=== PATIENT | male | born 1950 | race Hispanic/Latino ===

== ENCOUNTER 2021-05-31 12:30 | Inpatient (IN) | payer MEDICARE ==
[2021-05-31 13:36] LABS: #Eosinphils 0.1 thou/uL (0.0-0.7); #Lymphocytes 1.5 thou/uL (1.20-3.40); #Monocytes 0.7 thou/uL (0.11-0.59); #Neutrophils 3.9 thou/uL (1.40-6.50); %Basophils 0.3 % (0.0-1.0); %Eosinophils 0.8 % (0.0-10.0); %Lymphocytes 24.6 % (21.0-51.0); %Monocytes 10.6 % (0.0-10.0); %Neutrophils 63.6 % (42.0-75.0); Hemoglobin 9.2 g/dL (14.0-18.0); Mean Corpuscular HGB CONC 33.6 g/dL (32.0-36.0); Mean Corpuscular Hemoglobin 34.4 pg (27.0-31.0); Mean Platelet Volume 7.1 fL (7.4-10.4); Platelet Count 126 thou/uL (130-400); Red Blood Cell (RBC) Count 2.66 mill/uL (4.70-6.10); White Blood Cell (WBC) Count 6.1 thou/uL (4.8-10.8)
[2021-05-31 13:46] LABS: Bacteria/HPF None Seen HPF (None Seen); Bilirubin Negative (Negative); Blood, Urine 2+ (Negative); Clarity Turbid (Clear); Glucose, Urine (Dipstick) Normal (Negative); Ketone, Urine Negative (Negative); Leukocyte Negative Leu/uL (Negative); Nitrite Negative (Negative); Protein, Urine (Dipstick) 70 mg/dL (Neg-Trace); RBC/HPF 0-3 HPF (0-3); Specific Gravity, Urine 1.016 (1.002-1.036); Squamous Epithelial 0-3 HPF (0-3); Urobilinogen Normal mg/dL (Less than 2); pH, Urine 5.5 (5.0-9.0)
[2021-05-31 13:48] LABS: ALT (SGPT) 8 U/L (8-55); AST (SGOT) 27 U/L (5-34); Albumin 2.3 g/dL (3.4-4.8); Alkaline Phosphatase 65 U/L (40-110); Anion Gap 17 mmol/L (10-20); BUN (Urea Nitrogen) 34 mg/dL (8.4-25.7); Bilirubin, Total 0.2 mg/dL (0.2-1.2); Calc. Creatinine Clearance 0 mL/min (70-130); Carbon Dioxide 26 mmol/L (23-31); Chloride 96 mmol/L (98-107); Glucose 104 mg/dL (80-115); Potassium 3.8 mmol/L (3.5-5.1); Sodium 135 mmol/L (136-145)
[2021-05-31 14:37] LABS: Calcium 15.1 mg/dL (7.8-10.44)
[2021-05-31 14:40] LABS: Globulin 9.6 g/dL (2.4-3.5); Protein, Total 11.9 g/dL (5.8-8.1)
[2021-05-31] MEDS ORDERED: Senokot S 8.6-50 MG TAB PO PRN (16:23)
[2021-05-31] MEDS ORDERED: Acetaminophen 325 MG TAB PO PRN (16:23)
[2021-05-31] MEDS ORDERED: Guaifenesin DM 100-10/5 ML UDCUP PO PRN (16:23)
[2021-05-31] MEDS ORDERED: Ondansetron PF 4 MG/2 ML Vial IVP PRN (16:23)
[2021-05-31] MEDS ORDERED: Bisacodyl 10 MG SUPP PR PRN (16:23)
[2021-05-31] MEDS ORDERED: HYDROcodone/Acetaminophen 5/325 mg Tablet PO PRN (16:23)
[2021-05-31] MEDS ORDERED: Zolpidem Tartrate 5 MG TAB PO PRN (16:23)
[2021-05-31] MEDS ORDERED: Ondansetron ODT 4 MG TAB PO PRN (16:23)
[2021-05-31] MEDS ORDERED: Loperamide HCl 2 MG CAP PO PRN (16:23)
[2021-05-31] MEDS ORDERED: hydrALAZINE 20 MG/ML VIAL SLOW IVP PRN (16:24)
[2021-05-31] MEDS ORDERED: Zoledronic Acid 4 MG in Sodium Chloride 0.9% 100 ML IVPB SCH (16:30)
[2021-05-31 16:57] LABS: INR-International Normal Ratio 1.3; Prothrombin Time 16.1 sec (12.0-14.7)
[2021-05-31 16:58] LABS: PTT 40.4 sec (22.9-36.1)
[2021-05-31 17:02] LABS: Magnesium 2.1 mg/dL (1.6-2.6); Phosphorus 5.2 mg/dL (2.3-4.7)
[2021-05-31] MEDS ORDERED: Amlodipine 10 MG TAB PO SCH (17:30)
[2021-05-31 18:41] VITALS: BMI 32.7
[2021-05-31] MEDS ORDERED: Zoledronic Acid 4 MG in Sodium Chloride 0.9% 100 ML IVPB ONE (19:23)
[2021-05-31] MEDS: Sodium Chloride 0.9% 1,000 ML IV SCH (20:36)
[2021-05-31 20:52] LABS: Creatinine, Urine 168.18 mg/dL (63-166)
[2021-05-31] MEDS ORDERED: Heparin 5,000 UNITS/ML VIAL SC SCH (21:00)
[2021-06-01 05:21] LABS: #Eosinphils 0.1 thou/uL (0.0-0.7); #Lymphocytes 0.9 thou/uL (1.20-3.40); #Monocytes 0.4 thou/uL (0.11-0.59); #Neutrophils 2.8 thou/uL (1.40-6.50); %Basophils 0.2 % (0.0-1.0); %Eosinophils 1.5 % (0.0-10.0); %Lymphocytes 21.9 % (21.0-51.0); %Monocytes 10.1 % (0.0-10.0); %Neutrophils 66.4 % (42.0-75.0); Hemoglobin 8.3 g/dL (14.0-18.0); Mean Corpuscular HGB CONC 33.4 g/dL (32.0-36.0); Mean Corpuscular Hemoglobin 34.1 pg (27.0-31.0); Platelet Count 118 thou/uL (130-400); RBC Distribution Width 12.7 % (11.5-14.5); Red Blood Cell (RBC) Count 2.43 mill/uL (4.70-6.10); White Blood Cell (WBC) Count 4.3 thou/uL (4.8-10.8)
[2021-06-01] MEDS: Sodium Chloride 0.9% 1,000 ML IV SCH ×3 (05:21→16:40)
[2021-06-01 05:39] LABS: ALT (SGPT) Less than 7 U/L (8-55); AST (SGOT) 24 U/L (5-34); Albumin 2.1 g/dL (3.4-4.8); Alkaline Phosphatase 60 U/L (40-110); Anion Gap 16 mmol/L (10-20); BUN (Urea Nitrogen) 37 mg/dL (8.4-25.7); Bilirubin, Total 0.3 mg/dL (0.2-1.2); Calc. Creatinine Clearance 19 mL/min (70-130); Carbon Dioxide 26 mmol/L (23-31); Chloride 101 mmol/L (98-107); Globulin 8.9 g/dL (2.4-3.5); Glucose 100 mg/dL (80-115); Potassium 3.8 mmol/L (3.5-5.1); Sodium 139 mmol/L (136-145)
[2021-06-01 05:44] LABS: Calcium 13.3 mg/dL (7.8-10.44)
[2021-06-01 06:46] LABS: Complement-C4 27.6 mg/dL (15-53)
[2021-06-01] MEDS ORDERED: Amlodipine 10 MG TAB PO SCH (09:00)
[2021-06-01] MEDS ORDERED: Sodium Bicarbonate 2.5 MEQ/5 ML VIAL ONE (09:53)
[2021-06-01] MEDS ORDERED: Midazolam HCl 2 mg/2 ml Vial ONE (09:54)
[2021-06-01] MEDS ORDERED: Fentanyl 100 MCG/2 ML VIAL ONE (09:54)
[2021-06-01] MEDS: Folic Acid 1 MG TAB PO SCH (10:35)
[2021-06-01] MEDS: Cyanocobalamin (Vitamin B-12) 1,000 MCG TAB PO SCH (10:35)
[2021-06-01 11:07] LABS: SARS-CoV-2 PCR by NAA Not Detected (NotDetected)
[2021-06-01 14:42] LABS: Immunoglob - A (Total IgA) Greater than 6300.00 mg/dL (101-645)
[2021-06-02] MEDS: Sodium Chloride 0.9% 1,000 ML IV SCH ×3 (00:06→17:32)
[2021-06-02 05:17] LABS: #Eosinphils 0.1 thou/uL (0.0-0.7); #Lymphocytes 0.7 thou/uL (1.20-3.40); #Monocytes 0.4 thou/uL (0.11-0.59); #Neutrophils 3.1 thou/uL (1.40-6.50); %Basophils 0.1 % (0.0-1.0); %Eosinophils 1.8 % (0.0-10.0); %Lymphocytes 16.4 % (21.0-51.0); %Neutrophils 71.8 % (42.0-75.0); Hemoglobin 7.7 g/dL (14.0-18.0); Mean Corpuscular HGB CONC 32.8 g/dL (32.0-36.0); Mean Platelet Volume 7.3 fL (7.4-10.4); Platelet Count 112 thou/uL (130-400); RBC Distribution Width 12.9 % (11.5-14.5); Red Blood Cell (RBC) Count 2.26 mill/uL (4.70-6.10); White Blood Cell (WBC) Count 4.3 thou/uL (4.8-10.8)
[2021-06-02 06:13] LABS: Anion Gap 13 mmol/L (10-20); BUN (Urea Nitrogen) 43 mg/dL (8.4-25.7); BUN/Creatinine Ratio 8.88; Calc. Creatinine Clearance 18 mL/min (70-130); Calcium 11.1 mg/dL (7.8-10.44); Carbon Dioxide 25 mmol/L (23-31); Chloride 102 mmol/L (98-107); Glucose 95 mg/dL (80-115); Phosphorus 3.3 mg/dL (2.3-4.7); Potassium 3.5 mmol/L (3.5-5.1); Sodium 136 mmol/L (136-145)
[2021-06-02] MEDS ORDERED: NIFEdipine XL 60 MG TAB PO SCH (06:15)
[2021-06-02] MEDS ORDERED: Midazolam HCl 2 mg/2 ml Vial ONE (09:22)
[2021-06-02] MEDS ORDERED: Fentanyl 100 MCG/2 ML VIAL ONE (09:23)
[2021-06-02] MEDS ORDERED: Sodium Bicarbonate 2.5 MEQ/5 ML VIAL ONE (09:23)
[2021-06-02] MEDS: Folic Acid 1 MG TAB PO SCH (11:10)
[2021-06-02] MEDS: Cyanocobalamin (Vitamin B-12) 1,000 MCG TAB PO SCH (11:10)
[2021-06-02 11:39] LABS: Iron 47 ug/dL (65-175); Iron Binding Capacity, Total 123 mcg/dL (261-462)
[2021-06-02] MEDS ORDERED: Dexamethasone 4 MG TAB PO SCH (15:00)
[2021-06-02 16:03] LABS: 24 Hr Creatinine 1531.44 mg/24 hr (950-2490); Creatinine, Urine 85.08 mg/dL (63-166)
[2021-06-02] MEDS: Docusate 100 MG CAP PO SCH (21:01)
[2021-06-03] MEDS: Sodium Chloride 0.9% 1,000 ML IV SCH (02:07)
[2021-06-03 05:12] LABS: Kappa Lambda Light Chain Ratio 0.01 (0.26-1.65); Kappa Light Chains 8.6 mg/L (3.3-19.4); Lambda Light Chain 1193.9 mg/L (5.7-26.3)
[2021-06-03 05:27] LABS: Anion Gap 17 mmol/L (10-20); BUN (Urea Nitrogen) 50 mg/dL (8.4-25.7); Calc. Creatinine Clearance 19 mL/min (70-130); Calcium 9.7 mg/dL (7.8-10.44); Carbon Dioxide 19 mmol/L (23-31); Chloride 101 mmol/L (98-107); Glucose 151 mg/dL (80-115); Sodium 133 mmol/L (136-145)
[2021-06-03 05:52] LABS: Thyroid Stimulating Hormone 0.5707 uIU/mL (0.35-4.94)
[2021-06-03] MEDS ORDERED: Cyanocobalamin 1000 MCG/ML VIAL IM SCH (07:00)
[2021-06-03] MEDS: Folic Acid 1 MG TAB PO SCH (08:17)
[2021-06-03] MEDS: Cyanocobalamin (Vitamin B-12) 1,000 MCG TAB PO SCH (08:17)
[2021-06-03] MEDS: Dexamethasone 4 MG TAB PO SCH (08:17)
[2021-06-03] MEDS: Ascorbic Acid 500 mg Chewable Tablet PO SCH (08:17)
[2021-06-03] MEDS: Docusate 100 MG CAP PO SCH ×2 (08:17→21:38)
[2021-06-03] MEDS: Ferrous Gluconate 324 MG TAB PO SCH (08:18)
[2021-06-03] MEDS: NIFEdipine XL 60 MG TAB PO SCH (08:24)
[2021-06-03] MEDS ORDERED: Sodium Bicarbonate 50 MEQ in Sodium Chloride 0.45% 1,000 ML IV SCH (09:45)
[2021-06-03] MEDS ORDERED: Febuxostat 40 MG TAB PO SCH (10:45)
[2021-06-03] MEDS: Sodium Bicarbonate 75 MEQ in Sodium Chloride 0.45% 1,000 ML IV SCH ×2 (11:20→23:07)
[2021-06-03 14:16] LABS: Albumin-Ur 13.8 % (.); Alpha 1 - Ur 3.4 % (.); Alpha 2 - Ur 11.7 % (.); Beta-Ur 63.6 % (.); Gamma-Ur 7.4 % (.); M-Spike,% 43.8 % (Not Observed); Protein, Urine 98.2 mg/dL (Not Estab.)
[2021-06-03 14:16] LABS: A/G Ratio 0.3 (0.7-1.7); Albumin 2.8 g/dL (2.9-4.4); Alpha 1 0.3 g/dL (0.0-0.4); Alpha 2 0.6 g/dL (0.4-1.0); Beta 5.5 g/dL (0.7-1.3); Gamma 2.4 g/dL (0.4-1.8); Globulin, Total 8.8 g/dL (2.2-3.9); M-Spike 4.5 g/dL (Not Observed); Protein Electrophoresis Intrp Note: (.)
[2021-06-04 04:37] LABS: #Lymphocytes 0.3 thou/uL (1.20-3.40); #Monocytes 0.4 thou/uL (0.11-0.59); #Neutrophils 5.8 thou/uL (1.40-6.50); %Basophils 0.6 % (0.0-1.0); %Lymphocytes 4.5 % (21.0-51.0); %Monocytes 5.4 % (0.0-10.0); %Neutrophils 89.5 % (42.0-75.0); Hemoglobin 7.2 g/dL (14.0-18.0); Mean Corpuscular HGB CONC 33.8 g/dL (32.0-36.0); Mean Corpuscular Hemoglobin 34.5 pg (27.0-31.0); Mean Platelet Volume 7.3 fL (7.4-10.4); Platelet Count 94 thou/uL (130-400); RBC Distribution Width 12.7 % (11.5-14.5); Red Blood Cell (RBC) Count 2.09 mill/uL (4.70-6.10); White Blood Cell (WBC) Count 6.5 thou/uL (4.8-10.8)
[2021-06-04 05:02] LABS: ALT (SGPT) Less than 7 U/L (8-55); AST (SGOT) 84 U/L (5-34); Albumin 1.8 g/dL (3.4-4.8); Alkaline Phosphatase 55 U/L (40-110); Anion Gap 16 mmol/L (10-20); BUN (Urea Nitrogen) 66 mg/dL (8.4-25.7); Bilirubin, Total Less than 0.2 mg/dL (0.2-1.2); Calc. Creatinine Clearance 21 mL/min (70-130); Calcium 8.3 mg/dL (7.8-10.44); Carbon Dioxide 21 mmol/L (23-31); Chloride 101 mmol/L (98-107); Globulin 7.9 g/dL (2.4-3.5); Glucose 133 mg/dL (80-115); Potassium 3.3 mmol/L (3.5-5.1); Protein, Total 9.7 g/dL (5.8-8.1); Sodium 135 mmol/L (136-145); Uric Acid 11.9 mg/dL (3.5-7.2)
[2021-06-04] MEDS: Sodium Bicarbonate 75 MEQ in Sodium Chloride 0.45% 1,000 ML IV SCH (08:09)
[2021-06-04] MEDS ORDERED: Potassium Chloride 20 MEQ TAB PO SCH (09:00)
[2021-06-04] MEDS: Docusate 100 MG CAP PO SCH ×2 (09:00→20:50)
[2021-06-04] MEDS: NIFEdipine XL 60 MG TAB PO SCH (09:00)
[2021-06-04] MEDS: Folic Acid 1 MG TAB PO SCH (09:01)
[2021-06-04] MEDS: Dexamethasone 4 MG TAB PO SCH (09:01)
[2021-06-04] MEDS: Cyanocobalamin (Vitamin B-12) 1,000 MCG TAB PO SCH (09:01)
[2021-06-04] MEDS: Ferrous Gluconate 324 MG TAB PO SCH (09:01)
[2021-06-04] MEDS ORDERED: BORTEZOMIB SC SCH (09:45)
[2021-06-04] MEDS ORDERED: ADMIXTURE FEE CHEMO SC SCH (09:45)
[2021-06-04] MEDS ORDERED: Cyclophosphamide 0.6 GM in Sodium Chloride 0.9% 250 ML 250 ML IVPB SCH (09:45)
[2021-06-04] MEDS: Febuxostat 40 MG TAB PO SCH (11:12)
[2021-06-04] MEDS: Ascorbic Acid 500 mg Chewable Tablet PO SCH (13:11)
[2021-06-04] MEDS: Lactated Ringer's 1,000 ML IV SCH ×2 (13:11→21:49)
[2021-06-04 16:36] LABS: Albumin, PEP 24hr Ur 11.9 % (NOT ESTAB.); Alpha-1-Globulin, PEP 24h Ur 2.1 % (NOT ESTAB.); Alpha-2-Globulin, PEP 24h Ur 4.1 % (NOT ESTAB.); Beta Globulin, PEP 24h Ur 18.1 % (NOT ESTAB.); Gamma Globulin, PEP 24h Ur 63.7 % (NOT ESTAB.); M-Spike, mg/24hr PEP Ur 1253.6 mg/24 hr (Not Observed); M-Spike,% PEP 24hr Ur 56.9 % (Not Observed); Protein, Urine 122.4 mg/dL (Not Estab.)
[2021-06-05 05:03] LABS: #Lymphocytes 0.3 thou/uL (1.20-3.40); #Monocytes 0.3 thou/uL (0.11-0.59); #Neutrophils 4.3 thou/uL (1.40-6.50); %Eosinophils 0.3 % (0.0-10.0); %Lymphocytes 5.9 % (21.0-51.0); %Monocytes 6.4 % (0.0-10.0); %Neutrophils 87.4 % (42.0-75.0); Mean Corpuscular HGB CONC 32.9 g/dL (32.0-36.0); Mean Corpuscular Hemoglobin 33.9 pg (27.0-31.0); Platelet Count 101 thou/uL (130-400); RBC Distribution Width 12.9 % (11.5-14.5); Red Blood Cell (RBC) Count 2.36 mill/uL (4.70-6.10)
[2021-06-05 05:21] LABS: ALT (SGPT) 8 U/L (8-55); AST (SGOT) 62 U/L (5-34); Albumin 1.9 g/dL (3.4-4.8); Alkaline Phosphatase 57 U/L (40-110); Anion Gap 17 mmol/L (10-20); BUN (Urea Nitrogen) 68 mg/dL (8.4-25.7); Bilirubin, Total Less than 0.2 mg/dL (0.2-1.2); Calc. Creatinine Clearance 28 mL/min (70-130); Calcium 7.8 mg/dL (7.8-10.44); Carbon Dioxide 21 mmol/L (23-31); Chloride 103 mmol/L (98-107); Glucose 123 mg/dL (80-115); Potassium 3.6 mmol/L (3.5-5.1); Protein, Total 9.9 g/dL (5.8-8.1); Sodium 137 mmol/L (136-145)
[2021-06-05] MEDS: Lactated Ringer's 1,000 ML IV SCH ×2 (05:51→12:48)
[2021-06-05] MEDS: Dexamethasone 4 MG TAB PO SCH (08:17)
[2021-06-05] MEDS: Sodium Bicarbonate Tab 325 MG TAB PO SCH ×2 (08:18→20:03)
[2021-06-05] MEDS: Cyanocobalamin (Vitamin B-12) 1,000 MCG TAB PO SCH (08:18)
[2021-06-05] MEDS: valACYclovir 500 MG TAB PO SCH (08:18)
[2021-06-05] MEDS: Ascorbic Acid 500 mg Chewable Tablet PO SCH (08:18)
[2021-06-05] MEDS: Docusate 100 MG CAP PO SCH ×2 (08:18→20:03)
[2021-06-05] MEDS: Febuxostat 40 MG TAB PO SCH (08:18)
[2021-06-05] MEDS: Folic Acid 1 MG TAB PO SCH (08:19)
[2021-06-05] MEDS: NIFEdipine XL 60 MG TAB PO SCH (08:19)
[2021-06-05] MEDS: Ferrous Gluconate 324 MG TAB PO SCH (08:19)
[2021-06-06 07:04] LABS: #Lymphocytes 0.3 thou/uL (1.20-3.40); #Monocytes 0.5 thou/uL (0.11-0.59); #Neutrophils 3.1 thou/uL (1.40-6.50); %Eosinophils 0.2 % (0.0-10.0); %Lymphocytes 8.5 % (21.0-51.0); %Monocytes 12.7 % (0.0-10.0); %Neutrophils 78.6 % (42.0-75.0); Hemoglobin 7.1 g/dL (14.0-18.0); Mean Corpuscular HGB CONC 32.6 g/dL (32.0-36.0); Mean Platelet Volume 7.7 fL (7.4-10.4); Platelet Count 91 thou/uL (130-400); Red Blood Cell (RBC) Count 2.08 mill/uL (4.70-6.10); White Blood Cell (WBC) Count 3.9 thou/uL (4.8-10.8)
[2021-06-06 07:05] LABS: Anion Gap 15 mmol/L (10-20); BUN (Urea Nitrogen) 63 mg/dL (8.4-25.7); Calc. Creatinine Clearance 35 mL/min (70-130); Carbon Dioxide 24 mmol/L (23-31); Chloride 103 mmol/L (98-107); Glucose 111 mg/dL (80-115); Potassium 3.5 mmol/L (3.5-5.1); Sodium 138 mmol/L (136-145)
[2021-06-06 08:09] VITALS: BP 164/84; TEMP 98.4
[2021-06-06 08:17] LABS: Phosphorus 3.2 mg/dL (2.3-4.7); Uric Acid 6.8 mg/dL (3.5-7.2)
[2021-06-06] MEDS ORDERED: Calcium Carbonate 500 MG ChewTAB PO SCH (09:00)
[2021-06-06] MEDS: Ferrous Gluconate 324 MG TAB PO SCH (10:18)
[2021-06-06] MEDS: Ascorbic Acid 500 mg Chewable Tablet PO SCH (10:19)
[2021-06-06] MEDS: Docusate 100 MG CAP PO SCH (10:20)
[2021-06-06] MEDS: Cyanocobalamin (Vitamin B-12) 1,000 MCG TAB PO SCH (10:20)
[2021-06-06] MEDS: NIFEdipine XL 60 MG TAB PO SCH (10:20)
[2021-06-06] MEDS: Folic Acid 1 MG TAB PO SCH (10:20)
[2021-06-06] MEDS: Sodium Bicarbonate Tab 325 MG TAB PO SCH (10:21)
[2021-06-06] MEDS: valACYclovir 500 MG TAB PO SCH (10:21)
[2021-06-06] MEDS: Febuxostat 40 MG TAB PO SCH (10:26)
== END 2021-06-06 15:44 | disposition home or self-care (01) | DRG 841 ==
LOC: EDBD 12:30 → ERS 12:30 → ERHOLD 16:00 → 2SW 18:35 → MSONC 06-03 20:20
PROVIDERS: ADMIT Internal Medicine; ATTEND Internal Medicine
PROC: 0TB13ZX Excision of Left Kidney, Percutaneous Approach, Diagnostic (ICD-10-PCS; principal; 2021-05-31)
PROC: 07DR3ZX Extraction of Iliac Bone Marrow, Percutaneous Approach, Diagnostic (ICD-10-PCS; 2021-06-02)
DX: C90.00 Multiple myeloma not having achieved remission (principal); N17.9 Acute kidney failure, unspecified; E87.2 Acidosis; D61.818 Other pancytopenia; M62.82 Rhabdomyolysis; Z20.822 Contact with and (suspected) exposure to COVID-19; D53.9 Nutritional anemia, unspecified; N13.9 Obstructive and reflux uropathy, unspecified; D50.9 Iron deficiency anemia, unspecified; E79.0 Hyperuricemia without signs of inflammatory arthritis and tophaceous disease; D89.2 Hypergammaglobulinemia, unspecified; E53.8 Deficiency of other specified B group vitamins; I12.9 Hypertensive chronic kidney disease with stage 1 through stage 4 chronic kidney disease, or unspecified chronic kidney disease; N18.9 Chronic kidney disease, unspecified; E87.6 Hypokalemia; Z87.891 Personal history of nicotine dependence
CPT/HCPCS: 20225; 36415; 38222; 50200; 71045; 74176; 77012; 80048; 80053; 80069; 81003; 81015; 82232; 82306; 82550; 82570; 82607; 82728; 82746; 83540; 83550; 83615; 83735; 83883; 83970; 84100; 84156; 84165; 84166; 84300; 84443; 84550; 85025; 85610; 85730; 86160; 87086; 88184; 88237; 88264; 88280; 88329; 93005; J0360; J1644; J2250; J3010; J3420; J3489; J3490; J7050; J7120; J8540; U0003; U0005

== ENCOUNTER 2021-06-11 10:43 | Day surgery (SDC) | payer MEDICARE ==
[~2021-06-11 10:43] MED LIST: ADMIXTURE FEE CHEMO SC SCH; BORTEZOMIB SC SCH; Cyclophosphamide 0.6 GM in Sodium Chloride 0.9% 250 ML 250 ML IVPB SCH; Dexamethasone 4 MG TAB PO SCH
[2021-06-11] MEDS ORDERED: Sodium Chloride 0.9% 10 ML ONE ×2 (11:51)
[2021-06-11 14:03] VITALS: BP 160/95
== END 2021-06-11 14:19 | disposition home or self-care (01) ==
LOC: ONC/OP 10:43
PROVIDERS: ATTEND Internal Medicine Hematology & Oncology
DX: Z51.11 Encounter for antineoplastic chemotherapy (principal); C90.00 Multiple myeloma not having achieved remission; C79.51 Secondary malignant neoplasm of bone
CPT/HCPCS: 96401; 96413; J7050; J9041; J9070

== ENCOUNTER 2021-06-14 07:59 | Outpatient (CLI) | payer MEDICARE | END 2021-06-14 08:00 | disposition home or self-care (01) | LOC: PET 07:59 | PROVIDERS: ATTEND Internal Medicine Hematology & Oncology | DX: Z51.11 Encounter for antineoplastic chemotherapy (principal); C90.00 Multiple myeloma not having achieved remission; C79.51 Secondary malignant neoplasm of bone | CPT/HCPCS: 78816; A9552; 96401; J9041 ==

== ENCOUNTER 2021-06-14 10:59 | Day surgery (SDC) | payer MEDICARE ==
[~2021-06-14 10:59] MED LIST changes: -Cyclophosphamide 0.6 GM in Sodium Chloride 0.9% 250 ML 250 ML IVPB SCH; -Dexamethasone 4 MG TAB PO SCH
[2021-06-14 11:18] VITALS: BP 143/73; TEMP 97.7
== END 2021-06-14 11:46 | disposition home or self-care (01) ==
LOC: ONC/OP 10:59
PROVIDERS: ATTEND Internal Medicine Hematology & Oncology
DX: Z51.11 Encounter for antineoplastic chemotherapy (principal); C90.00 Multiple myeloma not having achieved remission; C79.51 Secondary malignant neoplasm of bone
CPT/HCPCS: 96401; J9041

== ENCOUNTER 2021-06-21 08:11 | Day surgery (SDC) | payer MEDICARE ==
[~2021-06-21 08:11] MED LIST changes: +Cyclophosphamide 0.6 GM in Sodium Chloride 0.9% 250 ML 250 ML IVPB SCH
[2021-06-21 08:51] LABS: #Eosinphils 0.1 thou/uL (0.0-0.7); #Lymphocytes 0.8 thou/uL (1.20-3.40); #Monocytes 0.3 thou/uL (0.11-0.59); #Neutrophils 2.1 thou/uL (1.40-6.50); %Basophils 0.4 % (0.0-1.0); %Eosinophils 2.2 % (0.0-10.0); %Lymphocytes 23.1 % (21.0-51.0); %Monocytes 9.5 % (0.0-10.0); %Neutrophils 64.8 % (42.0-75.0); Hemoglobin 8.4 g/dL (14.0-18.0); Mean Corpuscular HGB CONC 35.2 g/dL (32.0-36.0); Mean Corpuscular Hemoglobin 35.1 pg (27.0-31.0); Mean Corpuscular Volume 99.7 fL (78.0-98.0); Mean Platelet Volume 10.8 fL (7.4-10.4); Platelet Count 109 thou/uL (130-400); RBC Distribution Width 14.4 % (11.5-14.5); Red Blood Cell (RBC) Count 2.39 mill/uL (4.70-6.10); White Blood Cell (WBC) Count 3.3 thou/uL (4.8-10.8)
[2021-06-21 08:59] VITALS: BP 134/73
[2021-06-21] MEDS ORDERED: Dexamethasone 4 MG TAB PO SCH (09:00)
== END 2021-06-21 10:35 | disposition home or self-care (01) ==
LOC: ONC/OP 08:11
PROVIDERS: ATTEND Internal Medicine Hematology & Oncology
DX: Z51.11 Encounter for antineoplastic chemotherapy (principal); C90.00 Multiple myeloma not having achieved remission; C79.51 Secondary malignant neoplasm of bone
CPT/HCPCS: 85025; 96401; 96413; J7050; J9041; J9070

== ENCOUNTER 2021-06-28 09:54 | Day surgery (SDC) | payer MEDICARE ==
[2021-06-28] MEDS ORDERED: Sodium Chloride 0.9% 10 ML ONE ×2 (10:14)
[2021-06-28] MEDS ORDERED: Cyclophosphamide 0.6 GM in Sodium Chloride 0.9% 250 ML 250 ML IVPB SCH (10:30)
[2021-06-28 10:43] VITALS: BP 135/70; TEMP 97.5
[2021-06-28] MEDS ORDERED: CYCLOPHOSPHAMIDE IVPB SCH (11:00)
[2021-06-28] MEDS ORDERED: SODIUM CHLORIDE 0.9% IVPB SCH (11:00)
[2021-06-28] MEDS ORDERED: Dexamethasone 4 MG TAB PO SCH (12:00)
== END 2021-06-28 14:56 | disposition home or self-care (01) ==
LOC: ONC/OP 09:54
PROVIDERS: ATTEND Internal Medicine Hematology & Oncology
DX: Z51.11 Encounter for antineoplastic chemotherapy (principal); C90.00 Multiple myeloma not having achieved remission; C79.51 Secondary malignant neoplasm of bone
CPT/HCPCS: 96413; J7050; J9070

== ENCOUNTER 2021-07-05 10:22 | Day surgery (SDC) | payer MEDICARE ==
[~2021-07-05 10:22] MED LIST changes: +Dexamethasone 4 MG TAB PO SCH
[2021-07-05] MEDS ORDERED: Sodium Chloride 0.9% 10 ML ONE ×2 (10:31)
[2021-07-05 10:58] VITALS: BP 124/82
== END 2021-07-05 13:17 | disposition home or self-care (01) ==
LOC: ONC/OP 10:22
PROVIDERS: ATTEND Internal Medicine Hematology & Oncology
DX: Z51.11 Encounter for antineoplastic chemotherapy (principal); C90.00 Multiple myeloma not having achieved remission; C79.51 Secondary malignant neoplasm of bone
CPT/HCPCS: 96401; 96413; J7050; J9041; J9070

== ENCOUNTER 2021-07-07 12:47 | Outpatient (CLI) | payer MEDICARE | END 2021-07-07 12:48 | disposition home or self-care (01) | LOC: ULT 12:47 | PROVIDERS: ATTEND Internal Medicine Hematology & Oncology | DX: Z51.11 Encounter for antineoplastic chemotherapy (principal); C90.00 Multiple myeloma not having achieved remission; Z79.899 Other long term (current) drug therapy; I08.8 Other rheumatic multiple valve diseases | CPT/HCPCS: 93306 ==

== ENCOUNTER 2021-07-08 10:40 | Day surgery (SDC) | payer MEDICARE ==
[~2021-07-08 10:40] MED LIST changes: -Cyclophosphamide 0.6 GM in Sodium Chloride 0.9% 250 ML 250 ML IVPB SCH; -Dexamethasone 4 MG TAB PO SCH
[2021-07-08 10:56] VITALS: BP 145/75; TEMP 97.9
== END 2021-07-08 11:08 | disposition home or self-care (01) ==
LOC: ONC/OP 10:40
PROVIDERS: ATTEND Internal Medicine Hematology & Oncology
DX: Z51.11 Encounter for antineoplastic chemotherapy (principal); C90.00 Multiple myeloma not having achieved remission; C79.51 Secondary malignant neoplasm of bone
CPT/HCPCS: 96401; J9041

== ENCOUNTER → 2021-07-12 | Day surgery (SDC) | payer MEDICARE ==
[~2021-07-12] MED LIST changes: +Cyclophosphamide 0.6 GM in Sodium Chloride 0.9% 250 ML 250 ML IVPB SCH; +Dexamethasone 4 MG TAB PO SCH
[2021-07-12 10:46] VITALS: BP 168/77; TEMP 97.4
== END ==
LOC: ONC/OP 10:22
PROVIDERS: ATTEND Internal Medicine Hematology & Oncology
DX: Z51.11 Encounter for antineoplastic chemotherapy (principal); C90.00 Multiple myeloma not having achieved remission; C79.51 Secondary malignant neoplasm of bone
CPT/HCPCS: 96401; 96413; J7050; J9041; J9070

== ENCOUNTER 2021-07-15 10:21 | Day surgery (SDC) | payer MEDICARE ==
[~2021-07-15 10:21] MED LIST changes: -Cyclophosphamide 0.6 GM in Sodium Chloride 0.9% 250 ML 250 ML IVPB SCH; -Dexamethasone 4 MG TAB PO SCH
[2021-07-15 10:31] VITALS: BP 154/71
== END 2021-07-15 10:54 | disposition home or self-care (01) ==
LOC: ONC/OP 10:21
PROVIDERS: ATTEND Internal Medicine Hematology & Oncology
DX: Z51.11 Encounter for antineoplastic chemotherapy (principal); C90.00 Multiple myeloma not having achieved remission; C79.51 Secondary malignant neoplasm of bone
CPT/HCPCS: 96401; J9041

== ENCOUNTER 2021-07-19 10:38 | Day surgery (SDC) | payer MEDICARE ==
[~2021-07-19 10:38] MED LIST changes: -ADMIXTURE FEE CHEMO SC SCH; -BORTEZOMIB SC SCH; +Cyclophosphamide 0.6 GM in Sodium Chloride 0.9% 250 ML 250 ML IVPB SCH; +Dexamethasone 4 MG TAB PO SCH
[2021-07-19] MEDS ORDERED: Sodium Chloride 0.9% 10 ML ONE ×2 (10:44)
[2021-07-19 11:14] VITALS: BP 146/71
== END 2021-07-19 12:09 | disposition home or self-care (01) ==
LOC: ONC/OP 10:38
PROVIDERS: ATTEND Internal Medicine Hematology & Oncology
DX: Z51.11 Encounter for antineoplastic chemotherapy (principal); C90.00 Multiple myeloma not having achieved remission; C79.51 Secondary malignant neoplasm of bone
CPT/HCPCS: 96413; J7050; J9070

== ENCOUNTER → 2021-07-26 | Day surgery (SDC) | payer MEDICARE ==
[~2021-07-26] MED LIST changes: +ADMIXTURE FEE CHEMO SC SCH; +BORTEZOMIB SC SCH; -Cyclophosphamide 0.6 GM in Sodium Chloride 0.9% 250 ML 250 ML IVPB SCH
== END ==
LOC: ONC/OP 10:36
PROVIDERS: ATTEND Internal Medicine Hematology & Oncology
DX: Z51.11 Encounter for antineoplastic chemotherapy (principal); C90.00 Multiple myeloma not having achieved remission; C79.51 Secondary malignant neoplasm of bone
CPT/HCPCS: 96372; 96401; J0897; J9041

== ENCOUNTER 2021-07-29 09:57 | Day surgery (SDC) | payer MEDICARE ==
[~2021-07-29 09:57] MED LIST changes: -Dexamethasone 4 MG TAB PO SCH
== END 2021-07-29 11:21 | disposition home or self-care (01) ==
LOC: ONC/OP 09:57
PROVIDERS: ATTEND Internal Medicine Hematology & Oncology
DX: Z51.11 Encounter for antineoplastic chemotherapy (principal); C90.00 Multiple myeloma not having achieved remission; C79.51 Secondary malignant neoplasm of bone
CPT/HCPCS: 96401; J9041

== ENCOUNTER 2021-08-02 10:20 | Day surgery (SDC) | payer MEDICARE | END 2021-08-02 12:16 | disposition home or self-care (01) | LOC: ONC/OP 10:20 | PROVIDERS: ATTEND Internal Medicine Hematology & Oncology | DX: Z51.11 Encounter for antineoplastic chemotherapy (principal); C90.00 Multiple myeloma not having achieved remission; C79.51 Secondary malignant neoplasm of bone | CPT/HCPCS: 96401; J9041 ==

== ENCOUNTER 2021-08-05 11:05 | Day surgery (SDC) | payer MEDICARE | END 2021-08-05 11:19 | disposition home or self-care (01) | LOC: ONC/OP 11:05 | PROVIDERS: ATTEND Internal Medicine Hematology & Oncology | DX: Z51.11 Encounter for antineoplastic chemotherapy (principal); C90.00 Multiple myeloma not having achieved remission; C79.51 Secondary malignant neoplasm of bone | CPT/HCPCS: 96401; J9041 ==

== ENCOUNTER 2021-08-16 10:03 | Day surgery (SDC) | payer MEDICARE ==
[~2021-08-16 10:03] MED LIST changes: +Dexamethasone 4 MG TAB PO SCH
[2021-08-16 10:18] VITALS: BP 136/70; TEMP 97.8
== END 2021-08-16 13:19 | disposition home or self-care (01) ==
LOC: ONC/OP 10:03
PROVIDERS: ATTEND Internal Medicine Hematology & Oncology
DX: Z51.11 Encounter for antineoplastic chemotherapy (principal); C90.00 Multiple myeloma not having achieved remission; C79.51 Secondary malignant neoplasm of bone
CPT/HCPCS: 36415; 80053; 82248; 83615; 83883; 84100; 84165; 84550; 96401; J9041

== ENCOUNTER 2021-08-19 10:48 | Day surgery (SDC) | payer MEDICARE ==
[~2021-08-19 10:48] MED LIST changes: -Dexamethasone 4 MG TAB PO SCH
[2021-08-19 11:07] VITALS: BP 137/75; TEMP 97.7
== END 2021-08-19 11:08 | disposition home or self-care (01) ==
LOC: ONC/OP 10:48
PROVIDERS: ATTEND Internal Medicine Hematology & Oncology
DX: Z51.11 Encounter for antineoplastic chemotherapy (principal); C90.00 Multiple myeloma not having achieved remission; C79.51 Secondary malignant neoplasm of bone
CPT/HCPCS: 96401; J9041

== ENCOUNTER → 2021-08-23 | Day surgery (SDC) | payer MEDICARE ==
[~2021-08-23] MED LIST changes: +Dexamethasone 4 MG TAB PO SCH
== END ==
LOC: ONC/OP 11:54
PROVIDERS: ATTEND Internal Medicine Hematology & Oncology
DX: Z51.11 Encounter for antineoplastic chemotherapy (principal); C90.00 Multiple myeloma not having achieved remission; C79.51 Secondary malignant neoplasm of bone
CPT/HCPCS: 96372; 96401; J0897; J9041

== ENCOUNTER 2021-08-26 10:05 | Day surgery (SDC) | payer MEDICARE ==
[~2021-08-26 10:05] MED LIST changes: -Dexamethasone 4 MG TAB PO SCH
[2021-08-26 10:47] VITALS: BP 133/73; TEMP 97.9
== END 2021-08-26 10:57 | disposition home or self-care (01) ==
LOC: ONC/OP 10:05
PROVIDERS: ATTEND Internal Medicine Hematology & Oncology
DX: Z51.11 Encounter for antineoplastic chemotherapy (principal); C90.00 Multiple myeloma not having achieved remission; C79.51 Secondary malignant neoplasm of bone
CPT/HCPCS: 96401; J9041

== ENCOUNTER 2021-08-27 09:27 | Emergency (ER) | payer MEDICARE | END 2021-08-27 13:37 | disposition home or self-care (01) | LOC: ERS 09:27 | DX: M25.421 Effusion, right elbow (principal); Z79.899 Other long term (current) drug therapy; Z79.82 Long term (current) use of aspirin; Z87.891 Personal history of nicotine dependence ==

== ENCOUNTER 2021-10-07 10:43 | Day surgery (SDC) | payer MEDICARE ==
[2021-10-07 12:08] VITALS: BP 166/80; TEMP 97.5
== END 2021-10-07 12:40 | disposition home or self-care (01) ==
LOC: ONC/OP 10:43
PROVIDERS: ATTEND Internal Medicine Hematology & Oncology
DX: Z51.11 Encounter for antineoplastic chemotherapy (principal); C90.00 Multiple myeloma not having achieved remission; C79.51 Secondary malignant neoplasm of bone
CPT/HCPCS: 96401; J9041

== ENCOUNTER → 2021-10-18 | Day surgery (SDC) | payer MEDICARE ==
[~2021-10-18] MED LIST changes: -ADMIXTURE FEE CHEMO SC SCH; +Bortezomib 3.5 MG SDV VIAL SC SCH; +Dexamethasone 4 MG TAB PO SCH; +SODIUM CHLORIDE 0.9% SC SCH
[2021-10-18 09:35] VITALS: BP 156/76; TEMP 97.6
== END | disposition home or self-care (01) ==
LOC: ONC/OP 09:18
PROVIDERS: ATTEND Internal Medicine Hematology & Oncology
DX: Z51.12 Encounter for antineoplastic immunotherapy (principal); C90.00 Multiple myeloma not having achieved remission; C79.51 Secondary malignant neoplasm of bone
CPT/HCPCS: 96401; J0897; J9041

== ENCOUNTER 2021-11-17 08:35 | Day surgery (SDC) | payer MEDICARE ==
[2021-11-17] MEDS ORDERED: Ondansetron ODT 8 MG TAB PO PRN (08:55)
[2021-11-17] MEDS ORDERED: valACYclovir 500 MG TAB PO SCH (09:00)
[2021-11-17] MEDS ORDERED: Dexamethasone 4 MG TAB PO SCH (09:00)
[2021-11-17 09:11] VITALS: BP 113/70; TEMP 98
== END 2021-11-17 09:12 | disposition home or self-care (01) ==
LOC: ONC/OP 08:35
PROVIDERS: ATTEND Internal Medicine Hematology & Oncology
DX: Z51.12 Encounter for antineoplastic immunotherapy (principal); C90.00 Multiple myeloma not having achieved remission; C79.51 Secondary malignant neoplasm of bone
CPT/HCPCS: 96372; J0897

== ENCOUNTER 2021-12-16 09:50 | Day surgery (SDC) | payer MEDICARE ==
[2021-12-16 10:05] VITALS: BP 151/76
== END 2021-12-16 11:18 | disposition home or self-care (01) ==
LOC: ONC/OP 09:50
PROVIDERS: ATTEND Internal Medicine Hematology & Oncology
DX: Z51.12 Encounter for antineoplastic immunotherapy (principal); C90.00 Multiple myeloma not having achieved remission; C79.51 Secondary malignant neoplasm of bone
CPT/HCPCS: 96372; J0897

== ENCOUNTER 2022-01-13 09:51 | Day surgery (SDC) | payer MEDICARE ==
[2022-01-13 10:31] VITALS: BP 125/74; TEMP 98.3
== END 2022-01-13 10:50 | disposition home or self-care (01) ==
LOC: ONC/OP 09:51
PROVIDERS: ATTEND Internal Medicine Hematology & Oncology
DX: Z51.11 Encounter for antineoplastic chemotherapy (principal); C90.00 Multiple myeloma not having achieved remission; C79.51 Secondary malignant neoplasm of bone
CPT/HCPCS: 96372; J0897

== ENCOUNTER 2022-02-10 10:10 | Day surgery (SDC) | payer MEDICARE ==
[2022-02-10 14:17] VITALS: BP 157/76; TEMP 97.9
== END 2022-02-10 14:18 | disposition home or self-care (01) ==
LOC: ONC/OP 10:10
PROVIDERS: ATTEND Internal Medicine Hematology & Oncology
DX: Z51.12 Encounter for antineoplastic immunotherapy (principal); C90.00 Multiple myeloma not having achieved remission; C79.51 Secondary malignant neoplasm of bone
CPT/HCPCS: 96372; J0897

== ENCOUNTER 2022-03-10 09:15 | Day surgery (SDC) | payer MEDICARE ==
[2022-03-10 09:33] VITALS: BP 131/69; TEMP 97.8
== END 2022-03-10 14:44 | disposition home or self-care (01) ==
LOC: ONC/OP 09:15
PROVIDERS: ATTEND Internal Medicine Hematology & Oncology
DX: Z51.12 Encounter for antineoplastic immunotherapy (principal); C90.00 Multiple myeloma not having achieved remission; C79.51 Secondary malignant neoplasm of bone
CPT/HCPCS: 96372; J0897

== ENCOUNTER 2022-04-07 09:08 | Day surgery (SDC) | payer MEDICARE ==
[~2022-04-07 09:08] MED LIST changes: -BORTEZOMIB SC SCH; -Bortezomib 3.5 MG SDV VIAL SC SCH; -Dexamethasone 4 MG TAB PO SCH; +FLU VACC QS2022-23(65YR UP)/PF 240 MCG/0.7 ML SYRINGE IM ONE; -SODIUM CHLORIDE 0.9% SC SCH
[2022-04-07 13:14] VITALS: BP 138/68; TEMP 97.7
== END 2022-04-07 13:15 | disposition home or self-care (01) ==
LOC: ONC/OP 09:08
PROVIDERS: ATTEND Internal Medicine Hematology & Oncology
DX: Z51.12 Encounter for antineoplastic immunotherapy (principal); C90.00 Multiple myeloma not having achieved remission; C79.51 Secondary malignant neoplasm of bone
CPT/HCPCS: 96372; J0897

== ENCOUNTER 2022-06-09 09:02 | Day surgery (SDC) | payer MEDICARE ==
[2022-06-09 10:08] VITALS: BP 140/73; TEMP 97.7
== END 2022-06-09 10:08 | disposition home or self-care (01) ==
LOC: ONC/OP 09:02
PROVIDERS: ATTEND Internal Medicine Hematology & Oncology
DX: Z51.12 Encounter for antineoplastic immunotherapy (principal); C90.00 Multiple myeloma not having achieved remission; C79.51 Secondary malignant neoplasm of bone
CPT/HCPCS: 96372; J0897

== ENCOUNTER 2022-07-07 09:29 | Day surgery (SDC) | payer MEDICARE ==
[2022-07-07 09:55] VITALS: BP 129/69; TEMP 97.8
== END 2022-07-07 12:00 | disposition home or self-care (01) ==
LOC: ONC/OP 09:29
PROVIDERS: ATTEND Internal Medicine Hematology & Oncology
DX: Z51.12 Encounter for antineoplastic immunotherapy (principal); C90.00 Multiple myeloma not having achieved remission; C79.51 Secondary malignant neoplasm of bone
CPT/HCPCS: 96372; J0897

== ENCOUNTER 2022-08-04 09:04 | Day surgery (SDC) | payer MEDICARE ==
[2022-08-04 16:46] VITALS: BP 156/76; TEMP 97.6
== END 2022-08-04 16:47 | disposition home or self-care (01) ==
LOC: ONC/OP 09:04
PROVIDERS: ATTEND Internal Medicine Hematology & Oncology
DX: Z51.12 Encounter for antineoplastic immunotherapy (principal); C90.00 Multiple myeloma not having achieved remission; C79.51 Secondary malignant neoplasm of bone
CPT/HCPCS: 96372; J0897

== ENCOUNTER 2022-08-09 12:30 | Outpatient (CLI) | payer MEDICARE | END 2022-08-09 12:31 | disposition home or self-care (01) | LOC: PET 12:30 | PROVIDERS: ATTEND Internal Medicine Hematology & Oncology | DX: C90.00 Multiple myeloma not having achieved remission (principal); C79.51 Secondary malignant neoplasm of bone | CPT/HCPCS: 78816; A9552 ==

== ENCOUNTER 2022-09-01 14:05 | Day surgery (SDC) | payer MEDICARE ==
[2022-09-01 14:24] VITALS: BP 177/84; TEMP 99
== END 2022-09-01 15:15 | disposition home or self-care (01) ==
LOC: ONC/OP 14:05
PROVIDERS: ATTEND Internal Medicine Hematology & Oncology
DX: Z51.12 Encounter for antineoplastic immunotherapy (principal); C90.00 Multiple myeloma not having achieved remission; C79.51 Secondary malignant neoplasm of bone
CPT/HCPCS: 96372; J0897

== ENCOUNTER 2022-09-20 11:58 | Outpatient (CLI) | payer MEDICARE | END 2022-09-20 11:59 | disposition home or self-care (01) | LOC: ULT 11:58 | PROVIDERS: ATTEND Internal Medicine Hematology & Oncology | DX: Z51.11 Encounter for antineoplastic chemotherapy (principal); C79.51 Secondary malignant neoplasm of bone; C90.00 Multiple myeloma not having achieved remission; I51.89 Other ill-defined heart diseases; Z79.899 Other long term (current) drug therapy | CPT/HCPCS: 93306 ==

== ENCOUNTER 2022-09-22 09:24 | Day surgery (SDC) | payer MEDICARE ==
[~2022-09-22 09:24] MED LIST changes: +Acetaminophen 500 MG TAB PO SCH; +Admixture Fee 1 EACH in Dextrose 5% in Water 10 ML IV SCH; +CARFILZOMIB IVPB SCH; +DARATUMUMAB IV SCH; +DEXTROSE 5% IVPB SCH; -FLU VACC QS2022-23(65YR UP)/PF 240 MCG/0.7 ML SYRINGE IM ONE; +SODIUM CHLORIDE 0.9% IV SCH; +WATER IVPB SCH; +diphenhydrAMINE 50 MG in Sodium Chloride 0.9% 50 ML IVPB SCH
[2022-09-22] MEDS ORDERED: Ondansetron 2MG/ML MDV 10 MG in Sodium Chloride 0.9% 50 ML IVPB SCH (09:45)
[2022-09-22] MEDS ORDERED: WATER IVPB SCH (10:00)
[2022-09-22] MEDS ORDERED: CARFILZOMIB IVPB SCH (10:00)
[2022-09-22] MEDS ORDERED: DEXTROSE 5% IVPB SCH (10:00)
[2022-09-22 10:23] VITALS: BP 142/72; TEMP 98.2
[2022-09-22] MEDS ORDERED: Acetaminophen 500 MG TAB ONE (11:04)
== END 2022-09-22 17:34 | disposition home or self-care (01) ==
LOC: ONC/OP 09:24
PROVIDERS: ATTEND Internal Medicine Hematology & Oncology
DX: Z51.12 Encounter for antineoplastic immunotherapy (principal); C90.00 Multiple myeloma not having achieved remission; C79.51 Secondary malignant neoplasm of bone
CPT/HCPCS: 96367; 96413; 96415; 96417; J9047; J9145; 80053; 82248; 83615; 84100; 84550; J1100; J1200; J2405; J7030; J7070

== ENCOUNTER 2022-09-29 09:29 | Day surgery (SDC) | payer MEDICARE ==
[~2022-09-29 09:29] MED LIST changes: +Ondansetron 2MG/ML MDV 10 MG in Sodium Chloride 0.9% 50 ML IVPB SCH
[2022-09-29] MEDS ORDERED: Acetaminophen 500 MG TAB ONE (09:51)
[2022-09-29] MEDS ORDERED: DEXTROSE 5% IVPB SCH (11:00)
[2022-09-29] MEDS ORDERED: CARFILZOMIB IVPB SCH (11:00)
[2022-09-29] MEDS ORDERED: WATER IVPB SCH (11:00)
[2022-09-29 15:47] VITALS: BP 119/66; TEMP 97.9
== END 2022-09-29 16:32 | disposition home or self-care (01) ==
LOC: ONC/OP 09:29
PROVIDERS: ATTEND Internal Medicine Hematology & Oncology
DX: Z51.12 Encounter for antineoplastic immunotherapy (principal); C90.00 Multiple myeloma not having achieved remission; C79.51 Secondary malignant neoplasm of bone
CPT/HCPCS: 96366; 96372; 96375; 96413; 96415; 96417; J0897; J9047; J9145; 36415; 80053; 82248; 83615; 84100; 84550; J1100; J1200; J2405; J7030; J7070

== ENCOUNTER 2022-10-07 09:55 | Day surgery (SDC) | payer MEDICARE ==
[~2022-10-07 09:55] MED LIST changes: -Admixture Fee 1 EACH in Dextrose 5% in Water 10 ML IV SCH; -CARFILZOMIB IVPB SCH; -DEXTROSE 5% IVPB SCH; +Dexamethasone Sod Phosphate 40 MG in Sodium Chloride 0.9% 50 ML IVPB SCH; -Ondansetron 2MG/ML MDV 10 MG in Sodium Chloride 0.9% 50 ML IVPB SCH; -WATER IVPB SCH
[2022-10-07] MEDS ORDERED: Acetaminophen 500 MG TAB ONE (10:28)
[2022-10-07 14:25] VITALS: BP 118/67; TEMP 98
== END 2022-10-07 15:07 | disposition home or self-care (01) ==
LOC: ONC/OP 09:55
PROVIDERS: ATTEND Internal Medicine Hematology & Oncology
DX: Z51.12 Encounter for antineoplastic immunotherapy (principal); C90.00 Multiple myeloma not having achieved remission; C79.51 Secondary malignant neoplasm of bone
CPT/HCPCS: 96413; 96415; J9145; J1100; J1200; J7030

== ENCOUNTER 2022-10-14 09:07 | Day surgery (SDC) | payer MEDICARE ==
[~2022-10-14 09:07] MED LIST changes: -DARATUMUMAB IV SCH; -Dexamethasone Sod Phosphate 40 MG in Sodium Chloride 0.9% 50 ML IVPB SCH; -SODIUM CHLORIDE 0.9% IV SCH
[2022-10-14] MEDS ORDERED: Ondansetron 2MG/ML MDV 10 MG in Sodium Chloride 0.9% 50 ML IVPB SCH (09:30)
[2022-10-14] MEDS ORDERED: SODIUM CHLORIDE 0.9% IV SCH ×3 (10:15→12:00)
[2022-10-14] MEDS ORDERED: DARATUMUMAB IV SCH ×3 (10:15→12:00)
[2022-10-14] MEDS ORDERED: DEXTROSE 5% IV SCH (10:30)
[2022-10-14] MEDS ORDERED: CARFILZOMIB IV SCH (10:30)
[2022-10-14] MEDS ORDERED: WATER IV SCH (10:30)
[2022-10-14] MEDS ORDERED: Acetaminophen 500 MG TAB ONE (11:29)
[2022-10-14 15:38] VITALS: BP 122/71; TEMP 98.1
== END 2022-10-14 17:01 | disposition home or self-care (01) ==
LOC: ONC/OP 09:07
PROVIDERS: ATTEND Internal Medicine Hematology & Oncology
DX: Z51.12 Encounter for antineoplastic immunotherapy (principal); C90.00 Multiple myeloma not having achieved remission; C79.51 Secondary malignant neoplasm of bone
CPT/HCPCS: 96367; 96375; 96413; 96415; 96417; J9047 ×2; 36415; 80053; 82248; 83615; 83883; 84100; 84155; 84165; 84550; J1100; J1200; J2405; J7050; J7070; J9145

== ENCOUNTER 2022-10-21 09:03 | Day surgery (SDC) | payer MEDICARE ==
[~2022-10-21 09:03] MED LIST changes: +DARATUMUMAB IV SCH; +Dexamethasone 40 MG in Dextrose 5% in Water 50 ML IVPB SCH; +Ondansetron 2MG/ML MDV 10 MG in Sodium Chloride 0.9% 50 ML IVP SCH; +Ondansetron 2MG/ML MDV 10 MG in Sodium Chloride 0.9% 50 ML IVPB SCH; +SODIUM CHLORIDE 0.9% IV SCH; +diphenhydrAMINE 50 MG/ML VIAL IVP SCH
[2022-10-21] MEDS ORDERED: WATER IV SCH (10:00)
[2022-10-21] MEDS ORDERED: SODIUM CHLORIDE 0.9% IV SCH (10:00)
[2022-10-21] MEDS ORDERED: CARFILZOMIB IV SCH (10:00)
[2022-10-21] MEDS ORDERED: DEXTROSE 5% IV SCH (10:00)
[2022-10-21] MEDS ORDERED: DARATUMUMAB IV SCH (10:00)
[2022-10-21] MEDS ORDERED: Acetaminophen 500 MG TAB ONE (11:15)
[2022-10-21 14:23] VITALS: BP 131/78; TEMP 98
== END 2022-10-21 16:25 | disposition home or self-care (01) ==
LOC: ONC/OP 09:03
PROVIDERS: ATTEND Internal Medicine Hematology & Oncology
DX: Z51.12 Encounter for antineoplastic immunotherapy (principal); C90.00 Multiple myeloma not having achieved remission; C79.51 Secondary malignant neoplasm of bone
CPT/HCPCS: 96367; 96376; 96413; 96415; 96417; J9047 ×2; 80053; 82248; 83615; 84100; 84550; J1100; J1200; J2405; J7030; J7050; J7070; J9145

== ENCOUNTER 2022-10-28 09:27 | Day surgery (SDC) | payer MEDICARE ==
[2022-10-28] MEDS ORDERED: Dexamethasone Sod Phosphate 40 MG in Sodium Chloride 0.9% 50 ML IVPB SCH (09:45)
[2022-10-28] MEDS ORDERED: diphenhydrAMINE 50 MG in Sodium Chloride 0.9% 50 ML IVPB SCH (09:45)
[2022-10-28] MEDS ORDERED: Acetaminophen 500 MG TAB PO SCH (09:45)
[2022-10-28] MEDS ORDERED: CARFILZOMIB IVPB SCH (10:00)
[2022-10-28] MEDS ORDERED: Ondansetron 2MG/ML MDV 10 MG in Sodium Chloride 0.9% 50 ML IVPB SCH (10:00)
[2022-10-28] MEDS ORDERED: WATER IVPB SCH (10:00)
[2022-10-28] MEDS ORDERED: DARATUMUMAB IV SCH ×2 (10:00)
[2022-10-28] MEDS ORDERED: SODIUM CHLORIDE 0.9% IV SCH ×2 (10:00)
[2022-10-28] MEDS ORDERED: DEXTROSE 5% IVPB SCH (10:00)
[2022-10-28] MEDS ORDERED: Acetaminophen 500 MG TAB ONE (10:22)
[2022-10-28 16:47] VITALS: BP 145/73; TEMP 97.7
== END 2022-10-28 16:56 | disposition home or self-care (01) ==
LOC: ONC/OP 09:27
PROVIDERS: ATTEND Internal Medicine Hematology & Oncology
DX: Z51.12 Encounter for antineoplastic immunotherapy (principal); C90.00 Multiple myeloma not having achieved remission; C79.51 Secondary malignant neoplasm of bone
CPT/HCPCS: 96366; 96372; 96413; 96415; 96417; J0897; J9047 ×2; J9145; 80053; 82248; 83615; 84100; 84550; J1100; J1200; J2405; J7030; J7050; J7070

== ENCOUNTER 2022-11-04 09:09 | Day surgery (SDC) | payer MEDICARE ==
[2022-11-04] MEDS ORDERED: Dexamethasone Sod Phosphate 40 MG in Sodium Chloride 0.9% 50 ML IVPB SCH (09:30)
[2022-11-04] MEDS ORDERED: Acetaminophen 500 MG TAB PO SCH (09:30)
[2022-11-04] MEDS ORDERED: diphenhydrAMINE 50 MG in Sodium Chloride 0.9% 50 ML IVPB SCH (09:30)
[2022-11-04] MEDS ORDERED: Acetaminophen 500 MG TAB ONE (10:30)
[2022-11-04] MEDS ORDERED: SODIUM CHLORIDE 0.9% IV SCH (12:00)
[2022-11-04] MEDS ORDERED: DARATUMUMAB IV SCH (12:00)
[2022-11-04 15:50] VITALS: BP 126/72; TEMP 98
== END 2022-11-04 15:31 | disposition home or self-care (01) ==
LOC: ONC/OP 09:09
PROVIDERS: ATTEND Internal Medicine Hematology & Oncology
DX: Z51.12 Encounter for antineoplastic immunotherapy (principal); C90.00 Multiple myeloma not having achieved remission; C79.51 Secondary malignant neoplasm of bone
CPT/HCPCS: 36415; 80053; 82248; 83615; 84100; 84550; 96367; 96413; 96415; J1100; J1200

== ENCOUNTER 2022-12-09 08:30 | Day surgery (SDC) | payer MEDICARE ==
[~2022-12-09 08:30] MED LIST changes: +CARFILZOMIB IVPB SCH; +DEXTROSE 5% IVPB SCH; -Dexamethasone 40 MG in Dextrose 5% in Water 50 ML IVPB SCH; -Ondansetron 2MG/ML MDV 10 MG in Sodium Chloride 0.9% 50 ML IVP SCH; +WATER IVPB SCH; -diphenhydrAMINE 50 MG/ML VIAL IVP SCH
[2022-12-09] MEDS ORDERED: Acetaminophen 500 MG TAB ONE (09:17)
[2022-12-09] MEDS ORDERED: Dexamethasone Sod Phosphate 20 MG in Sodium Chloride 0.9% 50 ML IVPB SCH (09:30)
[2022-12-09 16:32] VITALS: BP 128/76; TEMP 98.2
== END 2022-12-09 16:23 | disposition home or self-care (01) ==
LOC: ONC/OP 08:30
PROVIDERS: ATTEND Internal Medicine Hematology & Oncology
DX: Z51.12 Encounter for antineoplastic immunotherapy (principal); C90.00 Multiple myeloma not having achieved remission; C79.51 Secondary malignant neoplasm of bone
CPT/HCPCS: 96366; 96413; 96415; 96417; J9047 ×2; J1100; J1200; J2405; J7070

== ENCOUNTER 2023-01-06 08:46 | Day surgery (SDC) | payer MEDICARE ==
[2023-01-06] MEDS ORDERED: Ondansetron 2MG/ML MDV 10 MG in Sodium Chloride 0.9% 50 ML IVPB SCH (09:00)
[2023-01-06] MEDS ORDERED: DARATUMUMAB IV SCH ×3 (09:00→09:15)
[2023-01-06] MEDS ORDERED: SODIUM CHLORIDE 0.9% IV SCH ×4 (09:00→09:15)
[2023-01-06] MEDS ORDERED: CARFILZOMIB IV SCH ×2 (09:00→09:15)
[2023-01-06] MEDS ORDERED: Acetaminophen 500 MG TAB PO SCH (09:00)
[2023-01-06] MEDS ORDERED: diphenhydrAMINE 50 MG/ML VIAL IVP SCH (09:00)
[2023-01-06] MEDS ORDERED: Dexamethasone 40 MG, Ondansetron 2MG/ML MDV 10 MG in Sodium Chloride 0.9% 50 ML IVPB SCH (09:00)
[2023-01-06] MEDS ORDERED: diphenhydrAMINE 50 MG in Sodium Chloride 0.9% 50 ML IVPB SCH (09:00)
[2023-01-06] MEDS ORDERED: WATER IV SCH (09:15)
[2023-01-06] MEDS ORDERED: DEXTROSE 5% IV SCH (09:15)
[2023-01-06] MEDS ORDERED: Acetaminophen 500 MG TAB ONE (09:34)
[2023-01-06 12:27] VITALS: BP 119/71; TEMP 97.6
== END 2023-01-06 15:46 | disposition home or self-care (01) ==
LOC: ONC/OP 08:46
PROVIDERS: ATTEND Internal Medicine Hematology & Oncology
DX: Z51.12 Encounter for antineoplastic immunotherapy (principal); C90.00 Multiple myeloma not having achieved remission; C79.51 Secondary malignant neoplasm of bone
CPT/HCPCS: 96366; 96367; 96413; 96415; 96417; J9047 ×2; 36415; 80053; 82248; 83615; 83883; 84100; 84155; 84165; 84550; J1100; J1200; J2405; J3490; J7030; J7070; J9145

== ENCOUNTER 2023-01-20 09:02 | Day surgery (SDC) | payer MEDICARE ==
[~2023-01-20 09:02] MED LIST changes: +CARFILZOMIB IV SCH; -CARFILZOMIB IVPB SCH; +DEXTROSE 5% IV SCH; -DEXTROSE 5% IVPB SCH; +WATER IV SCH; -WATER IVPB SCH
[2023-01-20] MEDS ORDERED: Acetaminophen 500 MG TAB ONE (09:57)
[2023-01-20 14:42] VITALS: BP 152/76; TEMP 97.9
== END 2023-01-20 15:07 | disposition home or self-care (01) ==
LOC: ONC/OP 09:02
PROVIDERS: ATTEND Internal Medicine Hematology & Oncology
DX: Z51.12 Encounter for antineoplastic immunotherapy (principal); C90.00 Multiple myeloma not having achieved remission; C79.51 Secondary malignant neoplasm of bone
CPT/HCPCS: 96367; 96372; 96375; 96413; 96415; 96417; J0897; J9047 ×2; J1100; J1200; J2405; J7070

== ENCOUNTER 2023-02-03 09:28 | Day surgery (SDC) | payer MEDICARE ==
[2023-02-03] MEDS ORDERED: Acetaminophen 500 MG TAB ONE (10:44)
[2023-02-03 13:06] VITALS: BP 144/82; TEMP 97.9
== END 2023-02-03 16:38 | disposition home or self-care (01) ==
LOC: ONC/OP 09:28
PROVIDERS: ATTEND Internal Medicine Hematology & Oncology
DX: C90.00 Multiple myeloma not having achieved remission (principal); C79.51 Secondary malignant neoplasm of bone
CPT/HCPCS: 96367; 96375; 96413; 96415; 96417; J9047 ×2; 36415; 80053; 82248; 83615; 83883; 84100; 84155; 84165; 84550; J1100; J1200; J2405; J7070

== ENCOUNTER 2023-02-10 09:02 | Day surgery (SDC) | payer MEDICARE ==
[~2023-02-10 09:02] MED LIST changes: -Acetaminophen 500 MG TAB PO SCH; -DARATUMUMAB IV SCH; -SODIUM CHLORIDE 0.9% IV SCH; -diphenhydrAMINE 50 MG in Sodium Chloride 0.9% 50 ML IVPB SCH
[2023-02-10 10:06] VITALS: BP 119/76; TEMP 98.1
== END 2023-02-10 11:35 | disposition home or self-care (01) ==
LOC: ONC/OP 09:02
PROVIDERS: ATTEND Internal Medicine Hematology & Oncology
DX: Z51.12 Encounter for antineoplastic immunotherapy (principal); C90.00 Multiple myeloma not having achieved remission; C79.51 Secondary malignant neoplasm of bone
CPT/HCPCS: 96367; 96413; J9047 ×2; J1100; J2405; J7070

== ENCOUNTER 2023-02-17 09:04 | Day surgery (SDC) | payer MEDICARE ==
[~2023-02-17 09:04] MED LIST changes: +Acetaminophen 500 MG TAB PO SCH; +DARATUMUMAB IV SCH; +SODIUM CHLORIDE 0.9% IV SCH; +diphenhydrAMINE 50 MG in Sodium Chloride 0.9% 50 ML IVPB SCH
[2023-02-17] MEDS ORDERED: Acetaminophen 500 MG TAB ONE (09:57)
[2023-02-17 16:19] VITALS: BP 136/67; TEMP 97.5
== END 2023-02-17 16:27 | disposition home or self-care (01) ==
LOC: ONC/OP 09:04
PROVIDERS: ATTEND Internal Medicine Hematology & Oncology
DX: C90.00 Multiple myeloma not having achieved remission (principal); C79.51 Secondary malignant neoplasm of bone
CPT/HCPCS: 96366; 96367; 96372; 96413; 96415; J0897; J9047 ×2; J1100; J1200; J2405; J7030; J7070; J9145

== ENCOUNTER 2023-03-03 08:39 | Day surgery (SDC) | payer MEDICARE ==
[~2023-03-03 08:39] MED LIST changes: +DEXAMETHASONE SOD PHOSPHATE IVPB SCH; +DEXTROSE 5% IVPB SCH; +WATER IVPB SCH
[2023-03-03] MEDS ORDERED: Acetaminophen 500 MG TAB ONE (09:20)
[2023-03-03] MEDS: Ondansetron 2MG/ML MDV 10 MG, Dexamethasone Sod Phosphate 20 MG in Sodium Chloride 0.9%... IVPB SCH ×2 (09:54→09:55)
[2023-03-03 16:32] VITALS: BP 107/66; TEMP 97.7
== END 2023-03-03 15:41 | disposition home or self-care (01) ==
LOC: ONC/OP 08:39
PROVIDERS: ATTEND Internal Medicine Hematology & Oncology
DX: Z51.12 Encounter for antineoplastic immunotherapy (principal); C90.00 Multiple myeloma not having achieved remission; C79.51 Secondary malignant neoplasm of bone
CPT/HCPCS: 96367; 96413; 96415; 96417; J9047 ×2; J1100; J1200; J2405; J7030; J7070; J9145

== ENCOUNTER 2023-03-10 08:39 | Day surgery (SDC) | payer MEDICARE ==
[~2023-03-10 08:39] MED LIST changes: -Acetaminophen 500 MG TAB PO SCH; -DARATUMUMAB IV SCH; -DEXAMETHASONE SOD PHOSPHATE IVPB SCH; -DEXTROSE 5% IVPB SCH; -SODIUM CHLORIDE 0.9% IV SCH; -WATER IVPB SCH; -diphenhydrAMINE 50 MG in Sodium Chloride 0.9% 50 ML IVPB SCH
[2023-03-10 09:28] VITALS: BP 111/61; TEMP 98.1
== END 2023-03-10 10:58 | disposition home or self-care (01) ==
LOC: ONC/OP 08:39
PROVIDERS: ATTEND Internal Medicine Hematology & Oncology
DX: Z51.12 Encounter for antineoplastic immunotherapy (principal); C90.00 Multiple myeloma not having achieved remission; C79.51 Secondary malignant neoplasm of bone
CPT/HCPCS: 96367; 96375; 96413; J9047 ×2; J1100; J2405; J7070

== ENCOUNTER 2023-03-31 09:46 | Day surgery (SDC) | payer MEDICARE ==
[~2023-03-31 09:46] MED LIST changes: +Acetaminophen 500 MG TAB PO SCH; +DARATUMUMAB IV SCH; -Ondansetron 2MG/ML MDV 10 MG in Sodium Chloride 0.9% 50 ML IVPB SCH; +Ondansetron 2MG/ML MDV 10 MG, Dexamethasone Sod Phosphate 20 MG in Sodium Chloride 0.9%... IVPB SCH; +SODIUM CHLORIDE 0.9% IV SCH; +diphenhydrAMINE 50 MG in Sodium Chloride 0.9% 50 ML IVPB SCH
[2023-03-31] MEDS ORDERED: Acetaminophen 500 MG TAB ONE (10:39)
[2023-03-31] MEDS ORDERED: FLU VACC QS2023(65UP)/MF59C/PF 60 MCG/0.5 ML SYRINGE IM ONE (14:00)
[2023-03-31 16:24] VITALS: TEMP 97.7
[2023-03-31 16:25] VITALS: BP 123/69
== END 2023-03-31 16:45 | disposition home or self-care (01) ==
LOC: ONC/OP 09:46
PROVIDERS: ATTEND Internal Medicine Hematology & Oncology
DX: Z51.12 Encounter for antineoplastic immunotherapy (principal); C90.00 Multiple myeloma not having achieved remission; C79.51 Secondary malignant neoplasm of bone
CPT/HCPCS: 96367; 96413; 96415; 96417; J9047 ×2; 36415; 80053; 82248; 83615; 83883; 84100; 84155; 84165; 84550; J1100; J1200; J2405; J7030; J7070; J9145

== ENCOUNTER 2023-04-07 09:04 | Day surgery (SDC) | payer MEDICARE ==
[~2023-04-07 09:04] MED LIST changes: -Acetaminophen 500 MG TAB PO SCH; -DARATUMUMAB IV SCH; +Ondansetron 2MG/ML MDV 10 MG in Sodium Chloride 0.9% 50 ML IVPB SCH; -Ondansetron 2MG/ML MDV 10 MG, Dexamethasone Sod Phosphate 20 MG in Sodium Chloride 0.9%... IVPB SCH; -SODIUM CHLORIDE 0.9% IV SCH; -diphenhydrAMINE 50 MG in Sodium Chloride 0.9% 50 ML IVPB SCH
[2023-04-07 09:49] VITALS: BP 109/66; TEMP 98
== END 2023-04-07 12:00 | disposition home or self-care (01) ==
LOC: ONC/OP 09:04
PROVIDERS: ATTEND Internal Medicine Hematology & Oncology
DX: Z51.12 Encounter for antineoplastic immunotherapy (principal); C90.00 Multiple myeloma not having achieved remission; C79.51 Secondary malignant neoplasm of bone
CPT/HCPCS: 96367; 96375; 96413; J9047 ×2; J1100; J2405; J7070

== ENCOUNTER 2023-04-14 10:04 | Day surgery (SDC) | payer MEDICARE ==
[2023-04-14 10:50] VITALS: BP 132/75; TEMP 98.1
== END 2023-04-14 11:45 | disposition home or self-care (01) ==
LOC: ONC/OP 10:04
PROVIDERS: ATTEND Internal Medicine Hematology & Oncology
DX: Z51.12 Encounter for antineoplastic immunotherapy (principal); C90.00 Multiple myeloma not having achieved remission; C79.51 Secondary malignant neoplasm of bone
CPT/HCPCS: 96367; 96375; 96413; J9047 ×2; J1100; J7070

== ENCOUNTER 2023-04-21 08:00 | Outpatient (CLI) | payer MEDICARE | END 2023-04-21 08:01 | disposition home or self-care (01) | LOC: PET 08:00 | PROVIDERS: ATTEND Internal Medicine Hematology & Oncology | DX: C90.00 Multiple myeloma not having achieved remission (principal); C79.51 Secondary malignant neoplasm of bone | CPT/HCPCS: 78816; A9552 ==

== ENCOUNTER 2023-04-28 09:56 | Day surgery (SDC) | payer MEDICARE ==
[~2023-04-28 09:56] MED LIST changes: +Acetaminophen 500 MG TAB PO SCH; +DARATUMUMAB IV SCH; -Ondansetron 2MG/ML MDV 10 MG in Sodium Chloride 0.9% 50 ML IVPB SCH; +Ondansetron 2MG/ML MDV 10 MG, Dexamethasone Sod Phosphate 20 MG in Sodium Chloride 0.9%... IVPB SCH; +SODIUM CHLORIDE 0.9% IV SCH; +diphenhydrAMINE 50 MG in Sodium Chloride 0.9% 50 ML IVPB SCH
[2023-04-28] MEDS ORDERED: Acetaminophen 500 MG TAB ONE (11:01)
[2023-04-28 15:04] VITALS: TEMP 97.5
[2023-04-28 15:22] VITALS: BP 122/62
== END 2023-04-28 16:38 | disposition home or self-care (01) ==
LOC: ONC/OP 09:56
PROVIDERS: ATTEND Internal Medicine Hematology & Oncology
DX: C90.00 Multiple myeloma not having achieved remission (principal); C79.51 Secondary malignant neoplasm of bone
CPT/HCPCS: 96367; 96413; 96415; 96417; J9047 ×2; 36415; 80053; 82248; 83615; 83883; 84100; 84155; 84165; 84550; J1100; J1200; J2405; J7030; J7070; J9145

== ENCOUNTER 2023-08-25 08:00 | Outpatient (CLI) | payer MEDICARE | END 2023-08-25 08:01 | disposition home or self-care (01) | LOC: PET 08:00 | PROVIDERS: ATTEND Internal Medicine Hematology & Oncology | DX: C90.00 Multiple myeloma not having achieved remission (principal); C79.51 Secondary malignant neoplasm of bone; R93.7 Abnormal findings on diagnostic imaging of other parts of musculoskeletal system | CPT/HCPCS: 78816; A9552 ==

== ENCOUNTER 2023-11-14 09:30 | Outpatient (CLI) | payer MEDICARE | END 2023-11-14 09:31 | disposition home or self-care (01) | LOC: PET 09:30 | PROVIDERS: ATTEND Internal Medicine Hematology & Oncology | DX: C90.00 Multiple myeloma not having achieved remission (principal); C79.51 Secondary malignant neoplasm of bone | CPT/HCPCS: 78816; A9552 ==

== ENCOUNTER 2023-12-28 20:30 | Inpatient (IN) | payer MEDICARE ==
[~2023-12-28 20:30] MED LIST changes: -Acetaminophen 500 MG TAB PO SCH; -CARFILZOMIB IV SCH; -DARATUMUMAB IV SCH; -DEXTROSE 5% IV SCH; +Iopamidol-370 76% 500 ML MDV (1 ML CHARGE) ONE; -Ondansetron 2MG/ML MDV 10 MG, Dexamethasone Sod Phosphate 20 MG in Sodium Chloride 0.9%... IVPB SCH; -SODIUM CHLORIDE 0.9% IV SCH; -WATER IV SCH; -diphenhydrAMINE 50 MG in Sodium Chloride 0.9% 50 ML IVPB SCH
[2023-12-28 21:27] LABS: Hematocrit 35.8 % (42.0-52.0); Hemoglobin 12.3 g/dL (14.0-18.0); Mean Corpuscular HGB CONC 34.4 g/dL (32.0-36.0); Mean Corpuscular Hemoglobin 36.7 pg (27.0-31.0); Mean Corpuscular Volume 106.9 fL (78.0-98.0); Mean Platelet Volume 9.1 fL (7.4-10.4); Platelet Count 247 10x3/uL (130-400); RBC Distribution Width 13.6 % (11.5-14.5); Red Blood Cell (RBC) Count 3.35 mill/uL (4.70-6.10)
[2023-12-28 21:31] LABS: Bilirubin Negative (Negative); Blood, Urine Large (Negative); Glucose, Urine (Dipstick) Negative (Negative); Ketone, Urine 15 mg/dL (Negative); Leukocyte Moderate (Negative); Nitrite Positive (Negative); Protein, Urine (Dipstick) > or equal to 300 mg/dL (Neg-Trace)
[2023-12-28 21:32] LABS: Bacteria/HPF 1+ HPF (None Seen); CAUTI Indications for Culture Acute Hematuria; Clarity Cloudy (Clear); RBC/HPF Greater than 50 HPF (0-3); Squamous Epithelial 0-3 HPF (0-3)
[2023-12-28 21:33] LABS: Urine Culture Reflex No No
[2023-12-28 21:34] LABS: PTT 25.9 sec (22.9-36.1); Prothrombin Time 13.6 sec (12.0-14.7)
[2023-12-28 21:36] LABS: ALT (SGPT) 7 U/L (8-55); AST (SGOT) 12 U/L (5-34); Albumin 3.1 g/dL (3.4-4.8); Alkaline Phosphatase 47 U/L (40-110); Anion Gap 16 mmol/L (10-20); BUN (Urea Nitrogen) 32 mg/dL (8.4-25.7); Bilirubin, Total 0.3 mg/dL (0.2-1.2); Calc. Creatinine Clearance 0 mL/min (70-130); Calcium 8.4 mg/dL (7.8-10.44); Carbon Dioxide 18 mmol/L (23-31); Chloride 114 mmol/L (98-107); Estimated GFR 56; Globulin 2.7 g/dL (2.4-3.5); Glucose 102 mg/dL (83-110); Potassium 3.5 mmol/L (3.5-5.1); Protein, Total 5.8 g/dL (5.8-8.1); Sodium 144 mmol/L (136-145)
[2023-12-28 21:45] LABS: Hypochromia SLIGHT = 6-15 cells HPF (0-5); Lymphocytes 11 % (21-51); Macrocytosis SLIGHT = 6-15 cells HPF (0-5); Monocytes 24 % (0-10); Neutrophil 64 % (42-75); Platelet Adequacy Comment Platelets Normal; Reactive Lymphocytes 2 % (0-10)
[2023-12-29] MEDS ORDERED: Acetaminophen 325 MG TAB PO PRN (00:30)
[2023-12-29] MEDS ORDERED: Ondansetron ODT 4 MG TAB SL PRN (00:30)
[2023-12-29] MEDS ORDERED: Ondansetron PF 4 MG/2 ML Vial IVP PRN (00:30)
[2023-12-29] MEDS ORDERED: cefTRIAXone (ROCEPHIN) 1 GM VIAL ONE (00:49)
[2023-12-29 01:46] VITALS: BMI 23.6
[2023-12-29] MEDS: Sodium Chloride 0.9% 1,000 ML IV SCH (01:49)
[2023-12-29] MEDS ORDERED: cefTRIAXone\\ROCEPHIN 1 GM in Sodium Chloride 0.9% 100 ML IVPB SCH (02:00)
[2023-12-29 05:14] LABS: Hematocrit 32.8 % (42.0-52.0); Hemoglobin 11.1 g/dL (14.0-18.0); Mean Corpuscular HGB CONC 33.8 g/dL (32.0-36.0); Mean Corpuscular Hemoglobin 36.5 pg (27.0-31.0); Mean Corpuscular Volume 107.9 fL (78.0-98.0); Mean Platelet Volume 9.4 fL (7.4-10.4); Platelet Count 235 10x3/uL (130-400); RBC Distribution Width 13.9 % (11.5-14.5); Red Blood Cell (RBC) Count 3.04 mill/uL (4.70-6.10)
[2023-12-29 05:22] LABS: Anion Gap 13 mmol/L (10-20); BUN (Urea Nitrogen) 30 mg/dL (8.4-25.7); Calc. Creatinine Clearance 49 mL/min (70-130); Calcium 8.2 mg/dL (7.8-10.44); Carbon Dioxide 22 mmol/L (23-31); Chloride 116 mmol/L (98-107); Estimated GFR 54; Glucose 98 mg/dL (83-110); Potassium 4.3 mmol/L (3.5-5.1); Sodium 147 mmol/L (136-145)
[2023-12-29 05:40] LABS: Band 2 % (5-11); Eosinophils 1 % (0-10); Hypochromia SLIGHT = 6-15 cells HPF (0-5); Lymphocytes 9 % (21-51); Macrocytosis SLIGHT = 6-15 cells HPF (0-5); Monocytes 23 % (0-10); Neutrophil 64 % (42-75); Platelet Adequacy Comment Platelets Normal; Polychromasia SLIGHT = 2-3 cells HPF (0-2)
[2023-12-29] MEDS ORDERED: Tamsulosin HCl 0.4 MG CAP PO SCH (09:00)
[2023-12-29] MEDS ORDERED: Lidocaine 1% PF 5 ML VIAL ONE (09:08)
[2023-12-29] MEDS ORDERED: Ondansetron PF 4 MG/2 ML Vial ONE (09:08)
[2023-12-29] MEDS ORDERED: fentaNYL PF 100 MCG/2 ML SYRINGE ONE (09:08)
[2023-12-29] MEDS ORDERED: Dexamethasone 4 mg/ml Vial ONE (09:08)
[2023-12-29] MEDS ORDERED: Rocuronium Bromide 10 MG/ML (10ML VIAL) ONE (09:08)
[2023-12-29] MEDS ORDERED: PROPOFOL 20 ML ONE (09:09)
[2023-12-29] MEDS ORDERED: LevoFLOXacin D5W 500 mg (100 mL) BAG ONE (09:12)
[2023-12-29] MEDS ORDERED: SUGAMMADEX SODIUM 200 MG/2 ML VIAL ONE (09:43)
[2023-12-29] MEDS ORDERED: PHENYLEPHRINE-NS 100 MCG/ML 10 ML SYRINGE ONE (09:48)
[2023-12-29] MEDS ORDERED: Mag-Al 1200 mg/1200 mg/30 ML UDCUP PO PRN (11:28)
[2023-12-29] MEDS ORDERED: Iopamidol 15 ML ONE (11:44)
[2023-12-29] MEDS ORDERED: hydrALAZINE 20 MG/ML VIAL ONE (12:05)
[2023-12-29] MEDS: Dextrose 5%-Lactated Ringers 1,000 ML IV SCH (13:38)
[2023-12-29] MEDS: Hyoscyamine SL 0.125 MG TAB SL SCH (13:38)
[2023-12-29] MEDS: valACYclovir 500 MG TAB PO SCH (13:38)
[2023-12-29] MEDS: Allopurinol 300 MG TAB PO SCH (13:38)
[2023-12-29] MEDS: Tamsulosin HCl 0.4 MG CAP PO SCH (13:38)
[2023-12-29 14:03] LABS: #Basophils Less than 0.03 10x3/uL (0.0-0.2); #Eosinphils Less than 0.03 10x3/uL (0.0-0.7); %Basophils 0.3 % (0.0-1.0); %Lymphocytes 3.6 % (21.0-51.0); %Monocytes 12.9 % (0.0-10.0); %Neutrophils 82.7 % (42.0-75.0); Hemoglobin 12.9 g/dL (14.0-18.0); Mean Corpuscular HGB CONC 33.9 g/dL (32.0-36.0); Mean Corpuscular Hemoglobin 36.3 pg (27.0-31.0); Mean Platelet Volume 9.3 fL (7.4-10.4); Platelet Count 245 10x3/uL (130-400); RBC Distribution Width 13.9 % (11.5-14.5); Red Blood Cell (RBC) Count 3.55 mill/uL (4.70-6.10)
[2023-12-29 14:28] LABS: Anion Gap 14 mmol/L (10-20); BUN (Urea Nitrogen) 27 mg/dL (8.4-25.7); Calc. Creatinine Clearance 51 mL/min (70-130); Calcium 8.5 mg/dL (7.8-10.44); Carbon Dioxide 20 mmol/L (23-31); Chloride 120 mmol/L (98-107); Estimated GFR 56; Glucose 151 mg/dL (83-110); Potassium 3.9 mmol/L (3.5-5.1); Sodium 150 mmol/L (136-145)
[2023-12-29] MEDS: Dextrose 5% in Water 1,000 ML IV SCH (15:07)
[2023-12-29] MEDS: metroNIDAZOLE 500 MG TAB PO SCH (15:08)
[2023-12-29] MEDS: Phenazopyridine HCl 100 MG TAB PO SCH (15:08)
[2023-12-29] MEDS ORDERED: Morphine 4 MG/ML VIAL SLOW IVP PRN (17:18)
[2023-12-29] MEDS: Polyethylene Glycol 3350 17 GM Packet PO SCH (18:12)
[2023-12-29] MEDS: Morphine 4 MG/ML VIAL SLOW IVP SCH (18:12)
[2023-12-29] MEDS: Terazosin HCl 1 MG CAP PO SCH (20:58)
[2023-12-29] MEDS: Docusate 100 MG CAP PO SCH (20:58)
[2023-12-30] MEDS: cefTRIAXone\\ROCEPHIN 1 GM in Sodium Chloride 0.9% 100 ML IVPB SCH (00:06)
[2023-12-30 04:22] LABS: #Basophils Less than 0.03 10x3/uL (0.0-0.2); #Eosinphils Less than 0.03 10x3/uL (0.0-0.7); %Basophils 0.2 % (0.0-1.0); %Lymphocytes 8.7 % (21.0-51.0); %Monocytes 25.4 % (0.0-10.0); %Neutrophils 65.1 % (42.0-75.0); Hematocrit 33.1 % (42.0-52.0); Hemoglobin 11.1 g/dL (14.0-18.0); Mean Corpuscular HGB CONC 33.5 g/dL (32.0-36.0); Mean Corpuscular Hemoglobin 35.8 pg (27.0-31.0); Mean Corpuscular Volume 106.8 fL (78.0-98.0); Mean Platelet Volume 10.2 fL (7.4-10.4); Platelet Count 247 10x3/uL (130-400)
[2023-12-30 04:39] LABS: Anion Gap 17 mmol/L (10-20); BUN (Urea Nitrogen) 23 mg/dL (8.4-25.7); Calc. Creatinine Clearance 60 mL/min (70-130); Calcium 7.7 mg/dL (7.8-10.44); Carbon Dioxide 21 mmol/L (23-31); Chloride 111 mmol/L (98-107); Estimated GFR 68; Glucose 127 mg/dL (83-110); Potassium 3.7 mmol/L (3.5-5.1); Sodium 145 mmol/L (136-145)
[2023-12-30 04:47] LABS: Band 6 % (5-11); Hypochromia SLIGHT = 6-15 cells HPF (0-5); Lymphocytes 6 % (21-51); Macrocytosis SLIGHT = 6-15 cells HPF (0-5); Metamyelocyte 1 % (0-0); Monocytes 11 % (0-10); Neutrophil 75 % (42-75); Platelet Adequacy Comment Platelets Normal; Polychromasia SLIGHT = 2-3 cells HPF (0-2); Reactive Lymphocytes 1 % (0-10)
[2023-12-30] MEDS: Polyethylene Glycol 3350 17 GM Packet PO SCH (08:03)
[2023-12-30] MEDS: GoLYTELY 4,000 ml Bottle PO SCH (15:03)
[2023-12-31] MEDS: GoLYTELY 4,000 ml Bottle PO SCH (02:31)
[2023-12-31 06:45] LABS: Hematocrit 31.8 % (42.0-52.0); Hemoglobin 10.8 g/dL (14.0-18.0); Mean Corpuscular Hemoglobin 36.1 pg (27.0-31.0); Mean Corpuscular Volume 106.4 fL (78.0-98.0); Mean Platelet Volume 9.4 fL (7.4-10.4); Platelet Count 219 10x3/uL (130-400); RBC Distribution Width 13.7 % (11.5-14.5); Red Blood Cell (RBC) Count 2.99 mill/uL (4.70-6.10)
[2023-12-31 07:06] LABS: Anion Gap 12 mmol/L (10-20); BUN (Urea Nitrogen) 15 mg/dL (8.4-25.7); Calc. Creatinine Clearance 70 mL/min (70-130); Carbon Dioxide 27 mmol/L (23-31); Chloride 103 mmol/L (98-107); Estimated GFR 82; Glucose 117 mg/dL (83-110); Potassium 2.9 mmol/L (3.5-5.1); Sodium 139 mmol/L (136-145)
[2023-12-31] MEDS ORDERED: PROPOFOL 40 ML ONE (07:57)
[2023-12-31] MEDS ORDERED: Simethicone 40 MG/0.6 ML Drop 30 ML BOT ONE (07:58)
[2023-12-31 08:04] LABS: Anisocytosis SLIGHT = 6-15 cells HPF (0-5); Large Platelets 2.9 % (0-5); Lymphocytes 11 % (21-51); Macrocytosis SLIGHT = 6-15 cells HPF (0-5); Monocytes 19 % (0-10); Neutrophil 70 % (42-75); Ovalocytes SLIGHT = 2-5 cells HPF (0-1); Platelet Adequacy Comment Platelets Normal; Polychromasia SLIGHT = 2-3 cells HPF (0-2); Smudge Cells 2.9 %
[2023-12-31] MEDS: Potassium Chloride 20 MEQ in Premix 1 BAG IVPB SCH (13:05)
[2024-01-01 06:30] LABS: Hemoglobin 10.1 g/dL (14.0-18.0); Mean Corpuscular HGB CONC 33.7 g/dL (32.0-36.0); Mean Corpuscular Volume 109.9 fL (78.0-98.0); Mean Platelet Volume 9.3 fL (7.4-10.4); Platelet Count 201 10x3/uL (130-400); RBC Distribution Width 13.9 % (11.5-14.5); Red Blood Cell (RBC) Count 2.73 mill/uL (4.70-6.10)
[2024-01-01 06:49] LABS: Anisocytosis SLIGHT = 6-15 cells HPF (0-5); Band 7 % (5-11); Eosinophils 1 % (0-10); Hypochromia SLIGHT = 6-15 cells HPF (0-5); Lymphocytes 12 % (21-51); Macrocytosis SLIGHT = 6-15 cells HPF (0-5); Monocytes 13 % (0-10); Neutrophil 66 % (42-75); Platelet Adequacy Comment Platelets Normal; Polychromasia SLIGHT = 2-3 cells HPF (0-2)
[2024-01-01 06:56] LABS: Anion Gap 11 mmol/L (10-20); BUN (Urea Nitrogen) 9 mg/dL (8.4-25.7); Calc. Creatinine Clearance 91 mL/min (70-130); Calcium 6.7 mg/dL (7.8-10.44); Carbon Dioxide 25 mmol/L (23-31); Chloride 106 mmol/L (98-107); Estimated GFR 96; Glucose 93 mg/dL (83-110); Potassium 2.8 mmol/L (3.5-5.1); Sodium 139 mmol/L (136-145)
[2024-01-01] MEDS: Potassium Chloride 20 MEQ TAB PO SCH ×2 (09:00→09:28)
[2024-01-01 09:08] LABS: Magnesium 1.2 mg/dL (1.6-2.6)
[2024-01-01] MEDS ORDERED: Electrolyte Replacement Protocol 1 EACH FS SCH (13:19)
[2024-01-01] MEDS: Magnesium Sulfate In Water 4 GM in Premix 1 BAG IVPB SCH (13:57)
[2024-01-01 18:53] LABS: Anion Gap 13 mmol/L (10-20); BUN (Urea Nitrogen) 10 mg/dL (8.4-25.7); Calc. Creatinine Clearance 98 mL/min (70-130); Calcium 7.1 mg/dL (7.8-10.44); Carbon Dioxide 22 mmol/L (23-31); Chloride 107 mmol/L (98-107); Estimated GFR 98; Glucose 132 mg/dL (83-110); Potassium 3.6 mmol/L (3.5-5.1); Sodium 138 mmol/L (136-145)
[2024-01-02 06:14] LABS: #Basophils 0.04 10x3/uL (0.0-0.2); %Basophils 0.9 % (0.0-1.0); %Eosinophils 1.6 % (0.0-10.0); %Lymphocytes 13.1 % (21.0-51.0); %Monocytes 18.5 % (0.0-10.0); %Neutrophils 63.9 % (42.0-75.0); Hematocrit 31.7 % (42.0-52.0); Hemoglobin 10.6 g/dL (14.0-18.0); Mean Corpuscular HGB CONC 33.4 g/dL (32.0-36.0); Mean Corpuscular Hemoglobin 35.9 pg (27.0-31.0); Mean Corpuscular Volume 107.5 fL (78.0-98.0); Mean Platelet Volume 9.1 fL (7.4-10.4); Platelet Count 205 10x3/uL (130-400); RBC Distribution Width 13.5 % (11.5-14.5); Red Blood Cell (RBC) Count 2.95 mill/uL (4.70-6.10)
[2024-01-02 06:29] LABS: Anion Gap 10 mmol/L (10-20); BUN (Urea Nitrogen) 10 mg/dL (8.4-25.7); Calc. Creatinine Clearance 86 mL/min (70-130); Calcium 7.1 mg/dL (7.8-10.44); Carbon Dioxide 23 mmol/L (23-31); Chloride 111 mmol/L (98-107); Estimated GFR 94; Glucose 90 mg/dL (83-110); Potassium 4.1 mmol/L (3.5-5.1); Sodium 140 mmol/L (136-145)
[2024-01-02] MEDS ORDERED: Magnevist 469MG/ML 20 ML VIAL ONE (13:23)
[2024-01-03] MEDS: NS 0.9% w/ 20 MEQ KCL 1,000 ML IV SCH (03:34)
[2024-01-03 05:25] LABS: #Basophils 0.04 10x3/uL (0.0-0.2); %Eosinophils 2.6 % (0.0-10.0); %Lymphocytes 15.1 % (21.0-51.0); %Monocytes 16.3 % (0.0-10.0); %Neutrophils 62.6 % (42.0-75.0); Hematocrit 31.7 % (42.0-52.0); Hemoglobin 10.8 g/dL (14.0-18.0); Mean Corpuscular HGB CONC 34.1 g/dL (32.0-36.0); Mean Corpuscular Hemoglobin 37.2 pg (27.0-31.0); Mean Corpuscular Volume 109.3 fL (78.0-98.0); Mean Platelet Volume 9.5 fL (7.4-10.4); Platelet Count 230 10x3/uL (130-400); RBC Distribution Width 13.5 % (11.5-14.5)
[2024-01-03 06:05] LABS: Anion Gap 11 mmol/L (10-20); BUN (Urea Nitrogen) 13 mg/dL (8.4-25.7); Calc. Creatinine Clearance 88 mL/min (70-130); Calcium 7.5 mg/dL (7.8-10.44); Carbon Dioxide 24 mmol/L (23-31); Chloride 108 mmol/L (98-107); Estimated GFR 95; Glucose 90 mg/dL (83-110); Magnesium 1.5 mg/dL (1.6-2.6); Potassium 4.3 mmol/L (3.5-5.1); Sodium 139 mmol/L (136-145)
[2024-01-03] MEDS: Magnesium 2 GM/50 ML(in water) 2 GM in Premix 1 BAG IVPB SCH (09:02)
[2024-01-03 14:49] VITALS: BP 146/81; TEMP 97
[2024-01-03] MEDS: Tamsulosin HCl 0.4 MG CAP PO SCH (15:20)
== END 2024-01-03 16:33 | disposition home or self-care (01) | DRG 713 ==
LOC: ERS 20:30 → MSONC 12-29 00:17 → IMCU/EMU 12-29 12:52 → SURG A 12-30 16:55
PROVIDERS: ADMIT Internal Medicine; ATTEND Internal Medicine
PROC: 0T788DZ Dilation of Bilateral Ureters with Intraluminal Device, Via Natural or Artificial Opening Endoscopic (ICD-10-PCS; principal; 2023-12-29)
PROC: 0VB08ZZ Excision of Prostate, Via Natural or Artificial Opening Endoscopic (ICD-10-PCS; 2023-12-29)
PROC: 0TBC8ZZ Excision of Bladder Neck, Via Natural or Artificial Opening Endoscopic (ICD-10-PCS; 2023-12-29)
PROC: BT14ZZZ Fluoroscopy of Kidneys, Ureters and Bladder (ICD-10-PCS; 2023-12-29)
PROC: 0W3R8ZZ Control Bleeding in Genitourinary Tract, Via Natural or Artificial Opening Endoscopic (ICD-10-PCS; 2023-12-29)
PROC: 0TCB8ZZ Extirpation of Matter from Bladder, Via Natural or Artificial Opening Endoscopic (ICD-10-PCS; 2023-12-29)
PROC: 0DBP8ZZ Excision of Rectum, Via Natural or Artificial Opening Endoscopic (ICD-10-PCS; 2023-12-31)
PROC: 0DBP8ZX Excision of Rectum, Via Natural or Artificial Opening Endoscopic, Diagnostic (ICD-10-PCS; 2023-12-31)
DX: I86.2 Pelvic varices (principal); C90.00 Multiple myeloma not having achieved remission; N13.6 Pyonephrosis; D62 Acute posthemorrhagic anemia; E87.1 Hypo-osmolality and hyponatremia; E87.0 Hyperosmolality and hypernatremia; N17.9 Acute kidney failure, unspecified; N50.1 Vascular disorders of male genital organs; R31.0 Gross hematuria; K62.1 Rectal polyp; E83.42 Hypomagnesemia; E87.6 Hypokalemia; E83.51 Hypocalcemia; E88.09 Other disorders of plasma-protein metabolism, not elsewhere classified; Z66 Do not resuscitate; I10 Essential (primary) hypertension; K59.09 Other constipation; N40.0 Benign prostatic hyperplasia without lower urinary tract symptoms; Z92.21 Personal history of antineoplastic chemotherapy; Z79.82 Long term (current) use of aspirin; Z79.899 Other long term (current) drug therapy; Z87.891 Personal history of nicotine dependence
CPT/HCPCS: 36415; 51702; 71045; 72197; 74177; 74420; 80048; 80053; 81001; 83735; 83930; 85025; 85610; 85730; 86850; 86900; 86901; 86922; 87086; 88305; 96374; A4333; A9579; C2617; J0360; J0696; J1100; J1956; J2405; J2704; J3475; J3480; J3490; J7050; J7070; Q9967

== ENCOUNTER 2024-01-20 08:03 | Emergency (ER) | payer MEDICARE ==
[2024-01-20 09:16] LABS: #Basophils Less than 0.03 10x3/uL (0.0-0.2); %Basophils 0.2 % (0.0-1.0); %Eosinophils 0.7 % (0.0-10.0); %Lymphocytes 7.2 % (21.0-51.0); %Monocytes 19.3 % (0.0-10.0); %Neutrophils 71.7 % (42.0-75.0); Hematocrit 32.4 % (42.0-52.0); Hemoglobin 11.3 g/dL (14.0-18.0); Mean Corpuscular HGB CONC 34.9 g/dL (32.0-36.0); Mean Corpuscular Hemoglobin 36.9 pg (27.0-31.0); Mean Corpuscular Volume 105.9 fL (78.0-98.0); Mean Platelet Volume 9.9 fL (7.4-10.4); Platelet Count 198 10x3/uL (130-400); RBC Distribution Width 13.9 % (11.5-14.5); Red Blood Cell (RBC) Count 3.06 mill/uL (4.70-6.10)
[2024-01-20] MEDS ORDERED: Iopamidol-370 76% 500 ML MDV (1 ML CHARGE) ONE (09:20)
[2024-01-20 09:43] LABS: ALT (SGPT) 8 U/L (8-55); AST (SGOT) 30 U/L (5-34); Alkaline Phosphatase 47 U/L (40-110); Anion Gap 13 mmol/L (10-20); BUN (Urea Nitrogen) 15 mg/dL (8.4-25.7); Bilirubin, Total 0.4 mg/dL (0.2-1.2); Calc. Creatinine Clearance 0 mL/min (70-130); Calcium 8.6 mg/dL (7.8-10.44); Carbon Dioxide 19 mmol/L (23-31); Chloride 108 mmol/L (98-107); Estimated GFR 93; Glucose 101 mg/dL (83-110); Lipase 26 U/L (8-78); Potassium 3.5 mmol/L (3.5-5.1); Sodium 136 mmol/L (136-145)
[2024-01-20] MEDS ORDERED: Acetaminophen 500 MG TAB ONE (10:12)
[2024-01-20 11:30] LABS: Bilirubin Negative (Negative); Blood, Urine 3+ (Negative); CAUTI Indications for Culture Acute Hematuria; Clarity Turbid (Clear); Glucose, Urine (Dipstick) Normal (Negative); Ketone, Urine Negative (Negative); Leukocyte 500 Leu/uL (Negative); Nitrite Negative (Negative); Protein, Urine (Dipstick) 50 mg/dL (Neg-Trace); RBC/HPF 21-50 HPF (0-3); Specific Gravity, Urine 1.012 (1.002-1.036); Squamous Epithelial 0-3 HPF (0-3); Urobilinogen Normal mg/dL (Less than 2); WBC/HPF Greater than 50 HPF (0-3); pH, Urine 6.5 (5.0-9.0)
[2024-01-20 11:40] LABS: Bacteria/HPF 1+ HPF (None Seen)
[2024-01-20 11:42] LABS: Urine Culture Reflex Yes Yes
[2024-01-20] MEDS ORDERED: cefTRIAXone (ROCEPHIN) 1 GM VIAL ONE (12:40)
[2024-01-20] MEDS ORDERED: Sodium Chloride 0.9% 100 ML ONE (12:40)
== END 2024-01-20 13:20 | disposition home or self-care (01) ==
LOC: ERS 08:03
DX: N30.00 Acute cystitis without hematuria (principal); Z87.891 Personal history of nicotine dependence
CPT/HCPCS: 74177; 80053; 81001; 83690; 85025; 87086; J0696; 96365